=== PATIENT | female | born 1995 | race Caucasian/White ===

== ENCOUNTER → 2021-01-31 | Outpatient (CLI) | payer BC, MEDICAID, SELFPAY ==
[2021-01-31 17:50] LABS: Amphetamine Urine VISTA NEGATIVE (<1000 ng/mL); Barbiturate Urine VISTA NEGATIVE (< 200 ng/mL); Benzodiazepine Urine VISTA NEGATIVE (< 200 ng/mL); Cocaine Urine VISTA NEGATIVE (< 300 ng/mL); Ecstacy Urine VISTA NEGATIVE (< 500 ng/mL); Methadone Urine VISTA NEGATIVE (< 300 ng/mL); PCP Urine VISTA NEGATIVE (< 25 ng/mL); THC Urine VISTA NEGATIVE (< 50 ng/mL); Vista UDS pH Range 5
[2021-02-03 00:06] LABS: Chlamydia By Nucleic Acid AMP Negative (Negative)
[2021-02-03 12:57] LABS: Gonococcus By Nucleic Acid AMP Negative (Negative)
== END | disposition home or self-care (01) ==
LOC: LABSPEC 16:30
PROVIDERS: Visit Provider Obstetrics & Gynecology
DX: Z34.90 Encounter for supervision of normal pregnancy, unspecified, unspecified trimester (principal)
CPT/HCPCS: 80307; 87086; 87491; 87591

== ENCOUNTER → 2021-02-09 12:07 | Outpatient (CLI) | payer BC, MEDICAID, SELFPAY ==
[2021-02-09 12:58] LABS: Absolute Lymphocyte Count 2.06 X10^3/uL (0.83-4.51); Absolute Neutrophil Count 5.6 X10^3/uL (2.0-7.7); Basophil# 0.03 X10^3/uL; Basophil% 0.4 % (0-1); Eosinophil# 0.02 X10^3/uL; Eosinophils% 0.2 % (0-5); Hematocrit 36.4 % (37-47); Hemoglobin 12.3 g/dL (12.0-15.0); Lymphocyte # 2.06 X10^3/ul (0.83-4.51); Lymphocyte % 24.5 % (19-41); Mean Corp Hgb Conc 33.8 g/dL (32-36); Mean Corpuscular Hgb 28.8 pg (27.0-32.0); Mean Corpuscular Volume 85.2 fL (81-99); Mean Platelet Vol. 9.9 fl (6.2-12.0); Monocyte# 0.62 X10^3/uL; Monocyte% 7.4 % (0-10); NRBC Flagged by Analyzer 0 % (0-5); Neutrophil # 5.64 X10^3/uL (2.7-7.7); Neutrophil % 67.1 % (47-70); Platelet Count 255 K/mm3 (150-450); RBC Distribution Width CV 12.8 % (11.6-14.6); RBC Distribution Width SD 39.4 fl (35.1-43.9); Red Blood Count 4.27 M/mm3 (4.2-5.4); White Blood Count 8.4 K/mm3 (4.4-11.0)
[2021-02-09 13:13] LABS: NATERA MAILED SPECIMEN
[2021-02-09 13:56] LABS: HIV - WCH Non-Reactive (Nonreactive); Hepatitis B Surface Antigen Non-Reactive (Nonreactive); Hepatitis C Antibody Non-Reactive (Nonreactive); Rubella IgG Reactive (Nonreactive); Syphilis Antibodies Non-reactive
== END ==
PROVIDERS: PCP Family Medicine; Referring Provider Obstetrics & Gynecology; Visit Provider Obstetrics & Gynecology
DX: Z34.81 Encounter for supervision of other normal pregnancy, first trimester (principal); Z31.430 Encounter of female for testing for genetic disease carrier status for procreative management
CPT/HCPCS: 36415; 85025; 86703; 86762; 86780; 86803; 86850; 86900; 86901; 87340

== ENCOUNTER 2021-06-01 10:00 | Outpatient (CLI) | payer BC, MEDICAID, SELFPAY ==
[2021-06-01 10:26] LABS: Absolute Lymphocyte Count 2.32 X10^3/uL (0.83-4.51); Absolute Neutrophil Count 8.6 X10^3/uL (2.0-7.7); Basophil# 0.05 X10^3/uL; Basophil% 0.4 % (0-1); Eosinophil# 0.08 X10^3/uL; Eosinophils% 0.7 % (0-5); Hematocrit 35.1 % (37-47); Hemoglobin 11.5 g/dL (12.0-15.0); Lymphocyte # 2.32 X10^3/ul (0.83-4.51); Lymphocyte % 19.5 % (19-41); Mean Corp Hgb Conc 32.8 g/dL (32-36); Mean Corpuscular Hgb 28.8 pg (27.0-32.0); Mean Platelet Vol. 9.5 fl (6.2-12.0); Monocyte# 0.77 X10^3/uL; Monocyte% 6.5 % (0-10); NRBC Flagged by Analyzer 0 % (0-5); Neutrophil # 8.55 X10^3/uL (2.7-7.7); Platelet Count 279 K/mm3 (150-450); RBC Distribution Width CV 13.2 % (11.6-14.6); RBC Distribution Width SD 42.5 fl (35.1-43.9); Red Blood Count 3.99 M/mm3 (4.2-5.4); White Blood Count 11.9 K/mm3 (4.4-11.0)
[2021-06-01 10:36] LABS: Glucose Challenge Gest 1H 50g 73 mg/dL (70-140)
== END 2021-06-01 23:59 | disposition home or self-care (01) ==
LOC: PAVLAB 10:01
PROVIDERS: PCP Family Medicine; Referring Provider Obstetrics & Gynecology; Visit Provider Obstetrics & Gynecology
DX: Z34.90 Encounter for supervision of normal pregnancy, unspecified, unspecified trimester (principal)
CPT/HCPCS: 36415; 82950; 85025

== ENCOUNTER → 2021-07-27 | Outpatient (CLI) | payer BC, MEDICAID, SELFPAY ==
--- NOTE | 2021-07-27 08:26 | US_ITS ---
STUDY: ULTRASOUND BREAST - RIGHT REASON FOR EXAM: Female, 25 years old. Right axillary lump. TECHNIQUE: Axial and longitudinal images of the RIGHT breast were performed with a high resolution ultrasound transducer. # OF IMAGES: 11 COMPARISON: None. FINDINGS: RIGHT Breast: Imaging of the right axillary region was obtained. There is evidence of accessory breast tissue in the region of the right axilla. US/Breast Limited Unilateral IMPRESSION: Accessory breast tissue is seen in the right axillary region. ASSESSMENT CATEGORY: BIRADS Category 2: Benign. A letter regarding these results will be sent to the patient by the facility within 30 days. Electronically Signed: Dale Telles MD at 8:53 EDT ,
== END | disposition home or self-care (01) ==
LOC: OPUS 08:25
PROVIDERS: PCP Family Medicine; Referring Provider Obstetrics & Gynecology; Visit Provider Obstetrics & Gynecology
DX: N63.31 Unspecified lump in axillary tail of the right breast (principal)
CPT/HCPCS: 76642

== ENCOUNTER → 2021-08-08 | Outpatient (CLI) | payer BC, MEDICAID, SELFPAY | END | disposition home or self-care (01) | PROVIDERS: PCP Family Medicine; Visit Provider Obstetrics & Gynecology | DX: Z34.90 Encounter for supervision of normal pregnancy, unspecified, unspecified trimester (principal) | CPT/HCPCS: 87081 ==

== ENCOUNTER 2021-08-29 19:35 | Inpatient (IN) | payer BC, MEDICAID, SELFPAY ==
[2021-08-29] VITALS (8 sets, daily range): BP systolic 108–129; BP diastolic 62–82; PULSE 64–79; TEMP 36.6–37.3; O2SAT 95–98; BMI 25.5
[2021-08-29 14:33] LABS: ROM Internal Control Test YES-OK TO RESULT pt. (Internal QC); ROM Patient Test Negative (Negative)
--- NOTE | 2021-08-29 14:46 | US_ITS ---
STUDY: SECOND AND THIRD TRIMESTER OBSTETRICAL ULTRASOUND - LIMITED REASON FOR EXAM: Female, 25 years old TERRA LMP: 11/25/2020. PRIOR ULTRASOUND: None. TECHNIQUE: Transabdominal TECHNICAL QUALITY: Adequate. FINDINGS: There is a single intrauterine fetus. The fetus is in a cephalic presentation. There is demonstrated cardiac activity with a heart rate of 137 bpm. There is a normal amniotic fluid volume. The largest amniotic fluid pocket measures 4.1 cm x 4.7 cm. The amniotic fluid index (TERRA) is 11.25 cm. The placenta is posterior in location and is not low lying. There are Grade 2 placental changes. BIOMETRY: Age by LMP: 39 weeks, 4 days. AIDE by LMP: 09/01/2021. US/OB Limited (No Biometrics) IMPRESSION: Normal amniotic fluid. Electronically Signed: Dale Telles MD at 15:32 EDT ,
[2021-08-29] MEDS: Lactated Ringers 1,000 ML 50 ML IV (20:05)
[2021-08-29 20:20] LABS: Absolute Lymphocyte Count 2.49 X10^3/uL (0.83-4.51); Absolute Neutrophil Count 7.1 X10^3/uL (2.0-7.7); Basophil# 0.04 X10^3/uL; Basophil% 0.4 % (0-1); Eosinophil# 0.11 X10^3/uL; Hematocrit 38.4 % (37-47); Hemoglobin 12.7 g/dL (12.0-15.0); Lymphocyte # 2.49 X10^3/ul (0.83-4.51); Lymphocyte % 23.7 % (19-41); Mean Corp Hgb Conc 33.1 g/dL (32-36); Mean Corpuscular Volume 84.8 fL (81-99); Monocyte% 6.7 % (0-10); NRBC Flagged by Analyzer 0 % (0-5); Neutrophil # 7.13 X10^3/uL (2.7-7.7); Neutrophil % 67.9 % (47-70); Platelet Count 249 K/mm3 (150-450); RBC Distribution Width CV 13.9 % (11.6-14.6); RBC Distribution Width SD 43.2 fl (35.1-43.9); Red Blood Count 4.53 M/mm3 (4.2-5.4); White Blood Count 10.5 K/mm3 (4.4-11.0)
--- NOTE | 2021-08-29 22:00 | NURSING ---
this RN reviewed intermittent auscultation with pt and her support person. pt states she would prefer continuous FHR tracing since she would like to hear FHR. this RN left her hooked up to monitor. RN informed pt she can always request IA, if she would want it later in her labor.
[2021-08-30] VITALS (20 sets, daily range): BP systolic 100–123; BP diastolic 55–78; PULSE 65–88; RESP 15–16; TEMP 36.3–37.2; O2SAT 96–100
[2021-08-30] MEDS: Oxytocin 30 units/NS 500 ml 30 UNITS/500 ML IV.SOLN IV (01:38)
[2021-08-30] MEDS: Ondansetron 4 MG/2 ML Vial IV (04:03)
[2021-08-30] MEDS: 0.9% Saline Lock 10 ML Syringe IV ×2 (04:03→10:58)
--- NOTE | 2021-08-30 06:08 | HP.PCM.OB_ITS ---
HPI - General General Date of Admission: 08/29/21 HPI Narrative ELVIN MCINTOSH, is a 25 F who presents IAL with ROM based on pooling seen on speculum exam. she has regular ctx and is 4 cm dilated. Maternal Data Information AIDE Calculator Estimated Delivery Date Method Current WG Current Estimate 09/01/21 LMP (Certain) 39w 5d PFSH PFSH Medical History COVID-19 vaccine series completed H/O: depression Home Medications multivitamin no.47-iron fum 27 mg-folate no.1 1 mg-dha 300 mg capsule (PNV-DHA) 1 cap PO DAILY Check with primary doctor 01/23/21 [History Last Taken 08/29/21 06:00] breast pump #1 ea 06/01/21 [Rx Last Taken Unknown] Allergy/AdvReac Type Severity Reaction Status Date / Time No Known Allergies Allergy Verified 08/29/21 14:00 Family History Other Diabetes Social History current occupational status: student current occupation: [employer] Smoking Status: Never smoker second hand exposure: No alcohol intake: current details: not while substance use type: does not use caffeine: Yes seatbelt use: always do you feel safe at home: Yes additional social history: - Marc History 1 Elective abortions Hx Para 0 Spontaneous abortions Hx # Term Pregnancies Ectopic pregnancies Hx # Pregnancies Multiple births # of living children Visit Details Expected Delivery Route/Plan IOL by 41ish weeks Labor Preferences- CB/BF classes: encouraged labor support person: Marc labor intervention preferences: [] pain management options preferred: limited intervention but ok with epidural if needed. cut cord/dad catch: yes : yes PP control planned: discussed discussed possible routes of delivery and associated risks: [] special requests: [] Plans Covid status: fully vaccinated Flu vaccine: vaccinated Tdap vaccine: given Rhogam: na LARC form signed: yes movement and labor precautions reviewed. Problem list reviewed and updated with the most current plan of care details and appropriate orders placed. Relevant counseling for the gestational age provided. Continue routine care and follow up unless otherwise noted in visit notes/problem list details OB Flowsheet Initial Weight: Not Recorded Date -?-?-?-?-?-?-?-?-?-?-?-?- EGA Weight BP Urine Prot -?-?-?-?-?-?-?-?-?-?-?-?- Glucose FHR FuHt Pres Dilation -?-?-?-?-?-?-?-?-?-?-?-?- Effaced St Visit Note 01/31/21 -?-?-?-?-?-?-?-?-?-?-?-?- 9w 4d 139 lb 2 oz 116/78 -?-?-?-?-?-?-?-?-?-?-?-?- -?-?-?-?-?-?-?-?-?-?-?-?- JV- CRL consiste nt with LMP. AIDE 09/01/21 03/02/21 -?-?-?-?-?-?-?-?--?-?-?-?- 13w 6d 143 lb 6 oz Negative -?-?-?-?-?-?-?-?-?-?-?-?- Negative 145 -?-?-?-?-?-?-?-?-?-?-?-?- JV- no lof, vagi nal bleeding or cramping. JV- no lof, vaginal bleeding or cramping. however has some round ligament pain. Ni and horizon tests were normal. 03/30/21 -?-?-?-?-?-?-?-?-?-?-?-?- 17w 6d 145 lb 114/72 Negative -?-?-?-?-?-?-?-?-?-?-?-?- Negative 150 -?-?-?-?-?-?-?-?-?-?-?-?- JV- no lof, vagi nal bleeding, or cramping. some dizziness. recommend compression stockings. 05/04/21 -?-?-?-?-?-?-?-?-?-?-?-?- 22w 6d 150 lb 2 oz 100/80 Nega tive -?-?-?-?-?-?-?-?-?-?-?-?- Negative 148 -?-?-?-?-?-?-?-?-?-?-?-?- JV- no complaint s today. 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 pt reassured. gct next visit. pt's is building their home and not present for today visit. 06/01/21 -?-?-?-?-?-?-?-?-?-?-?-?- 26w 6d 157 lb 6 oz 122/80 Nega tive -?-?-?-?-?-?-?-?-?-?-?-?- Negative 140 27 -?-?-?-?-?-?-?-?-?-?-?-?- JV- no lof, vagi nal bleeding, or dec fm. normal glucola. 06/20/21 -?-?-?-?-?-?-?-?-?-?-?-?- 29w 4d 164 lb 112/60 Negative -?-?-?-?-?-?-?-?-?-?-?-?- Negative 136 29 -?-?-?-?-?-?-?-?-?-?-?-?- MH-No VB, LOF. G ood FM. Tdap. [facility]. 28 wk labs. 07/06/21 -?-?-?-?-?-?-?-?-?-?-?-?- 31w 6d 163 lb 4 oz 120/86 Nega tive -?-?-?-?-?-?-?-?-?-?-?-?- Negative 140 32 -?-?-?-?-?-?-?-?-?-?-?-?- JV- pt has a pea size lump under axilla but is getting bigger. non-tender but feels rubbery and fixed. ordering ultrasound. 07/20/21 -?-?-?-?-?-?-?-?-?-?-?-?- 33w 6d 163 lb 122/82 Negative -?-?-?-?-?-?-?-?-?-?-?-?- Negative 140 35 Cephalic -?-?-?-?-?-?-?-?-?-?-?-?- SM- no vb lof go od fm no regular ctx. 08/03/21 -?-?-?-?-?-?-?-?-?-?-?-?- 35w 6d 165 lb 110/70 Negative -?-?-?-?-?-?-?-?-?-?-?-?- Negative 155 35 0 -?-?-?-?-?-?-?-?-?-?-?-?- Jv- pt c/o motr and more pressure and dyscomfort. labor precautions discussed. gbs next visit 08/08/21 -?-?-?-?-?-?-?-?-?-?-?-?- 36w 4d 168 lb 116/82 Negative -?-?-?-?-?-?-?-?-?-?-?-?- Negative 145 37 Cephalic 0 -?--?-?-?-?-?-?-?-?-?-?-?- -2 JV- feta l station is low but cx posterior. gbs collected. 08/16/21 -?-?-?-?-?-?-?-?-?-?-?-?- 37w 5d 167 lb 8 oz 118/76 Nega tive -?-?-?-?-?-?-?-?-?-?-?-?- Negative 150 37 Cephalic 1 .5 -?-?-?-?-?-?-?-?-?-?-?-?- 60 -1 JV- no lof , vaginal bleeding, or dec fm. no complaints.labor precautions discussed. 08/24/21 -?-?-?-?-?-?-?-?-?-?-?-?- 38w 6d 168 lb 8 oz 118/80 Nega tive -?-?-?-?-?-?-?-?-?-?-?-?- Negative 150 38 Cephalic 1 .5 -?-?-?-?-?-?-?-?-?-?-?-?- SM- no vb lof go od fm no regular ctx 08/29/21 -?-?-?-?-?-?-?-?-?-?-?-?- 39w 4d 168 lb 119/78 129/82 120/69 108/66 121/62 100/55 116/70 123/78 120/78 -?-?-?-?-?-?-?-?-?-?-?-?- -?-?-?-?-?-?-?-?-?-?-?-?- NST FHR Rate Baby A Baseline: 140 Variability:: Moderate Accelerations:: 15 x 15 Decelerations:: None NST Reactive:: Yes FHR Category:: Category I Uterine Activity:: q3-5 ROS Constitutional Constitutional: Reports systems reviewed and no addt'l complaints, except as documented ENT HEENT: Reports systems reviewed and no addt'l complaints, except as documented Cardiovascular Cardiovascular: Reports systems reviewed and no addt'l complaints, except as documented Respiratory/Chest Respiratory/Chest: Reports systems reviewed and no addt'l complaints, except as documented Gastrointestinal Gastrointestinal: Reports systems reviewed and no addt'l complaints, except as documented and nausea; Denies abdominal pain Genitourinary Genitourinary: Reports systems reviewed and no addt'l complaints, except as documented, contractions Details: present and frequency (regular ) and movement Details: present Musculoskeletal Musculoskeletal: Reports systems reviewed and no addt'l complaints, except as documented Integumentary Integumentary: Reports as per HPI Neurologic Neurologic: Reports systems reviewed and no addt'l complaints, except as documented Endocrine Endocrinology: Reports systems reviewed and no addt'l complaints, except as documented Vital Signs Vital Signs Vital Signs: 08/29/21 13:47 08/29/21 13:47 08/29/21 13:47 Temperature Temperature Source Pulse Rate 64 Blood Pressure 119/78 BP Systolic 119 BP Diastolic 78 Pulse Ox 98 08/29/21 13:46 08/29/21 13:46 08/29/21 20:46 Temperature 98.6 F Temperature Source Temporal Pulse Rate Blood Pressure 129/82 H BP Systolic 129 BP Diastolic 82 Pulse Ox 08/29/21 20:46 08/29/21 20:46 08/29/21 20:44 Temperature Temperature Source Temporal Pulse Rate 67 Blood Pressure BP Systolic BP Diastolic Pulse Ox 97 08/29/21 20:44 08/29/21 20:44 08/29/21 21:41 Temperature 97.8 F Temperature Source Pulse Rate Blood Pressure 120/69 BP Systolic 120 BP Diastolic 69 Pulse Ox 95 08/29/21 21:41 08/29/21 21:41 08/29/21 21:40 Temperature Temperature Source Temporal Pulse Rate 77 Blood Pressure BP Systolic BP Diastolic Pulse Ox 96 08/29/21 21:40 08/29/21 21:40 08/29/21 22:35 Temperature 99.1 F Temperature Source Pulse Rate Blood Pressure 108/66 BP Systolic 108 BP Diastolic 66 Pulse Ox 95 08/29/21 22:35 08/29/21 22:35 08/29/21 22:35 Temperature Temperature Source Temporal Pulse Rate 67 Blood Pressure BP Systolic BP Diastolic Pulse Ox 98 08/29/21 22:35 08/29/21 23:08 08/29/21 23:08 Temperature 97.8 F Temperature Source Temporal Pulse Rate Blood Pressure 121/62 H BP Systolic 121 BP Diastolic 62 Pulse Ox 08/29/21 23:08 08/29/21 23:08 08/29/21 23:08 Temperature 97.8 F Temperature Source Pulse Rate 79 Blood Pressure BP Systolic BP Diastolic Pulse Ox 95 08/30/21 00:29 08/30/21 00:29 08/30/21 00:29 Temperature Temperature Source Pulse Rate 74 Blood Pressure 100/55 L BP Systolic 100 BP Diastolic 55 Pulse Ox 98 08/30/21 00:29 08/30/21 00:29 08/30/21 00:29 Temperature 97.5 F L Temperature Source Temporal Pulse Rate Blood Pressure BP Systolic BP Diastolic Pulse Ox 98 08/30/21 01:31 08/30/21 01:31 08/30/21 01:31 Temperature Temperature Source Temporal Pulse Rate 66 Blood Pressure 116/70 BP Systolic 116 BP Diastolic 70 Pulse Ox 08/30/21 01:31 08/30/21 01:31 08/30/21 02:53 Temperature 97.6 F L Temperature Source Temporal Pulse Rate Blood Pressure BP Systolic BP Diastolic Pulse Ox 98 08/30/21 02:53 08/30/21 02:53 08/30/21 02:53 Temperature Temperature Source Pulse Rate 75 Blood Pressure 123/78 H BP Systolic 123 BP Diastolic 78 Pulse Ox 100 08/30/21 02:53 08/30/21 03:53 08/30/21 03:53 Temperature 98.1 F Temperature Source Temporal Pulse Rate Blood Pressure 120/78 BP Systolic 120 BP Diastolic 78 Pulse Ox 08/30/21 03:53 08/30/21 03:53 08/30/21 03:53 Temperature 97.3 F L Temperature Source Pulse Rate 81 Blood Pressure BP Systolic BP Diastolic Pulse Ox 98 08/30/21 04:59 08/30/21 04:59 08/30/21 04:59 Temperature 97.6 F L Temperature Source Temporal Pulse Rate Blood Pressure BP Systolic BP Diastolic Pulse Ox 96 Weight Weight: 168 lb Body Mass Index (BMI) 25.5 Physical Exam Const alert, oriented x3 and healthy appearing Constitutional Narrative: uncomfortable with contractions HEENT normocephalic and moist oral mucous membranes Head and Scalp: atraumatic Neck full ROM, no lymphadenopathy, supple and thyroid normal General: trachea midline Thyroid: thyroid normal Lymph Lymphatic: no lymphadenopathy noted Chest inspection of chest normal Resp normal respiratory effort Cardio regular rate GI normal to inspection, nondistended, normoactive bowel sounds, soft to palpation and non-tender Inspection: gravid external exam normal Bimanual Exam - Vag & Uterus: uterus non-tender Manual OB Exam: estimated gestational size appropriate, presentation cephalic, dilated, effaced and station Extremity normal to inspection General Extremity: Negative for edema Skin no rashes or lesions noted Neuro deep tendon reflexes 2+ bilaterally Motor Exam: strength 5/5 throughout and clonus absent Psych mental status grossly normal Labs Labs Labs: Blood Type O POSITIVE Antibody Screen NEGATIVE Hct 38.4 % (37-47) Hgb 12.7 g/dL (12.0-15.0) Obstetrics US Syphilis Total Ab Non-reactive Rubella IgG Antibody Reactive (Nonreactive) Hep Bs Antigen Non-Reactive (Nonreactive) Chlamydia DNA (DU) Negative (Negative) Neisseria gonorrhoeae DNA (DU) Negative (Negative) HIV 1&2 Antibody Non-Reactive (Nonreactive) Glucose 1 Hr 50 gm 73 mg/dL (70-140) Assessment & Plan (1) Supervision of normal : QUALIFIERS: Normal : normal first Trimester: third trimester Qualified Code(s): Z34.03 - Encounter for supervision of normal first , third trimester COMMENT: PRR AIDE: 09/01/21, girl, Spouse: Marc, (2) H/O: depression: COMMENT: on medication in the past, not currently; stable (3) : QUALIFIERS: Weeks of gestation: 38 weeks Qualified Code(s): Z3A.38 - 38 weeks gestation of COMMENT: anatomy nl, genetic low risk, dec afp.neg . GBS neg (4) Active labor at term: PLAN: Plan Patient presents IAL, plan expectant management for , pitocin/AROM PRN if needed. Pain management: minimal intervention. GBS neg. Management of any complications: none I have reviewed the [facility] and made any clinically relevant updates.
--- NOTE | 2021-08-30 07:54 | OP.PCM_ITS ---
Assessment & Plan (1) Active labor at term: (2) Supervision of normal : QUALIFIERS: Normal : normal first Trimester: third trimester Qualified Code(s): Z34.03 - Encounter for supervision of normal first , third trimester COMMENT: PRR AIDE: 09/01/21, girl, Spouse: Marc, (3) H/O: depression: COMMENT: on medication in the past, not currently; stable (4) : QUALIFIERS: Weeks of gestation: 38 weeks Qualified Code(s): Z3A.38 - 38 weeks gestation of COMMENT: anatomy nl, genetic low risk, dec afp.neg . GBS neg (5) Vaginal delivery: COMMENT: SM IAL 39 girl [place] Maternal Data Information AIDE Calculator Estimated Delivery Date Method Current WG Current Estimate 09/01/21 LMP (Certain) 39w 6d Vaginal Delivery Operative Information Date of Procedure: 08/30/21 Pre-Operative Diagnosis: IAL Post-Operative Diagnosis: same Surgery / Procedure Performed: Spontaneous Vaginal Delivery Type of Anesthesia: Local with 1% Lidocaine Special Medications: none Estimated Blood Loss: 200 Fluids Replaced: crystalloid Findings Description of Procedure: Patient began pushing and delivered the head in the AC presentation. The head was delivered atraumatically. The anterior and posterior shoulders delivered without complication followed by the rest of the and the was placed on the maternal abdomen. Delayed cord clamping was employed for approximately 60 seconds. Cord was clamped and cut and gentle traction was applied to the cord and the placenta delivered spontaneously immediately following it was noted to be intact with three-vessel cord. The perineum and vagina were inspected and noted to have a left labial laceration which was injected with lidocaine and repaired in the usual fashion. EBL was 200. Patient and tolerated delivery well. Presentation: AC Amniotic Membrane Rupture Type: Artificial Amniotic Fluid Description: Clear Placental Delivery Description: Spontaneous Placenta Disposition: [facility] Cord Vessel Description: 3 Vessels Cord Entanglement: None Infant A Gender: Female Delayed Cord Clamping: Yes Post Vaginal Delivery Medications Given After Delivery: IV Pitocin Episiotomy Description: None Laceration: Vaginal Extension/lac and 1st degree Complication Complications: None Procedures Urinary/Genital [id number]: [id number] Vaginal Delivery [facility]
[2021-08-30] MEDS: Oxytocin 30 units/NS 500 ml 30 UNITS/500 ML IV.SOLN 334 UNITS IV (08:25)
--- NOTE | 2021-08-30 10:04 | NURSING ---
SROM on 08/29/21 @ 1300. Then AROM forebag at 2130.
[2021-08-30] MEDS: Acetaminophen 500 MG Tablet 1000 MG PO (19:55)
[2021-08-31] MEDS: Naproxen 500 MG Tablet PO (00:56)
[2021-08-31 01:05] VITALS: BP 114/64; PULSE 63; RESP 16; TEMP 36.3
--- NOTE | 2021-08-31 02:51 | DCINST_ITS ---
Discharge Instructions Diet Discharge Diet: No restrictions Activity Discharge Activity: Return to Normal Activity, May Drive, May Shower and May Take a Tub Bath (in 4 weeks) May resume sexual activity in: 6-8 weeks (after seen by OB provider) Weight Bearing Status: Full weight bearing Lifting Restrictions: none Dressing / Incision Call your doctor if you observe: Fever of 101 or Higher, Inability to urinate, Using more than 1 pad per hour (for more than 2 hours in a row or more), Shortness of breath, Dizziness, Chest pain and - (headache not controlled with tylenol, change in vision) Follow Up Care When: in 6 weeks for visit, call the office to make the appointment. If you had elevated blood pressures call the office to be seen within 1 week. Test Results: Test results from this visit will be discussed in further detail at your follow- up appointment, if applicable. Discharge Plan Admission Admit Date/Time: 08/29/21 19:35 Attending Provider: Kay Brooks Primary Care Provider: Michelle Hastings Discharge Orders/Prescriptions Prescriptions: No Action PNV-DHA 27 mg iron-1 mg -300 mg capsule 1 cap PO DAILY (DME) breast pump Device See Rx Instructions .ROUTE .MEDSUPPLY Qty: 1 0RF Rx Instructions: As directed Referrals / Follow Up: Michelle Hastings DO [Primary Care Provider] - Disposition Disposition (needs filled in before D/C Order can be placed): Home, Self Care
[2021-08-31 04:45] VITALS: BP 100/60; PULSE 70; RESP 16; TEMP 36.3
[2021-08-31 09:07] VITALS: BP 100/62; PULSE 64; RESP 16; TEMP 36
[2021-08-31] MEDS: Senna/Docusate Sodium 1 Tablet PO (09:22)
--- NOTE | 2021-08-31 12:36 | PCM.PN.OB ---
Subjective Subjective Patient doing well without complaints. Tolerating PO. Ambulating and voiding without difficulty. feeding well. Denies chest pain, shortness of breath, calf pain/swelling, fevers, chills, lightheadedness. Objective Data Objective Data Vital Signs: Vital Signs Temp Pulse Resp BP Pulse Ox O2 Del Method 96.8 F L 64 16 100/62 99 Room Air 08/31/21 09:07 08/31/21 09:07 08/31/21 09:07 08/31/21 09:07 08/30/21 07:00 08/30/21 16:58 Oxygen Delivery Method Room Air Weight: 168 lb Body Mass Index (BMI) 25.5 Intake & Output: Intake and Output for Last 24 Hours 08/29/21 08/30/21 08/31/21 23:59 23:59 23:59 Intake Total 2732.67 / 2732.67 Output Total 1300 / 1300 Balance 1432.67 / 1432.67 Lab / Micro Data Result Diagrams: 08/29/21 20:05 Micro: Microbiology 08/29/21 20:05 Nasal Secretion SARS-CoV-2 Antigen (Rapid) - Final ROS Constitutional Constitutional: Reports systems reviewed and no addt'l complaints, except as documented Cardiovascular Cardiovascular: Reports systems reviewed and no addt'l complaints, except as documented Respiratory/Chest Respiratory/Chest: Reports systems reviewed and no addt'l complaints, except as documented Gastrointestinal Gastrointestinal: Reports systems reviewed and no addt'l complaints, except as documented Physical Exam Const alert, oriented x3 and no apparent distress HEENT Head and Scalp: atraumatic Resp normal respiratory effort GI soft to palpation and non-tender Bimanual Exam - Vag & Uterus: uterus non-tender Uterus Palpation: uterus fundus firm (below Umbilicus) Assessment & Plan (1) Vaginal delivery: COMMENT: SM IAL 39 girl [place] PLAN: Plan s/p PPD # 1 1. routine post delivery care 2. breast feeding- support given 3. rh positive 4. rubella immune
[2021-08-31 12:39] VITALS: BP 111/63; PULSE 83; RESP 18; TEMP 36.8
== END 2021-08-31 14:31 | disposition home or self-care (01) | DRG 807 ==
LOC: WPOUT 19:35 → WP 19:35
PROVIDERS: Admitting Provider Obstetrics & Gynecology; PCP Family Medicine; Visit Provider Obstetrics & Gynecology
DX: O70.0 First degree perineal laceration during delivery (principal); Z37.0 Single live birth; Z3A.38 38 weeks gestation of pregnancy; Z86.59 Personal history of other mental and behavioral disorders
CPT/HCPCS: 59025; 59050; 76815; 84112; 85025; 86850; 86900; 86901; 87426; 99218; J7120; A4216; G0378; J2405

== ENCOUNTER → 2021-10-19 | Outpatient (CLI) | payer SELFPAY ==
[2021-10-28 14:08] LABS: HPV Reflexed? NOT INDICATED
== END | disposition home or self-care (01) ==
PROVIDERS: Visit Provider Obstetrics & Gynecology
DX: Z12.4 Encounter for screening for malignant neoplasm of cervix (principal)
CPT/HCPCS: 88175; G0145

== ENCOUNTER 2022-09-26 03:26 | Emergency (ER) | payer BC, SELFPAY ==
[2022-09-26 03:27] VITALS: BP 124/86; PULSE 73; RESP 15; TEMP 36.8; O2SAT 99; BMI 20.8
--- NOTE | 2022-09-26 03:52 | EDS_ITS ---
HPI HPI - GI History of Present Illness Chief Complaint: Abd Pain Informant: patient Abdominal Pain/Flank Pain Onset: Hours (1-2) Context: Gradual Onset Timing: Continuous Quality: Sharp Location: Epigastric (w/o radiation/migration) Current Severity: Mild Maximum Severity: Moderate Worsened by: - (laughing) Relieved by: Nothing (tried tums) Nausea/Vomiting/Emesis GI Symptom: Negative for Nausea or Vomiting Diarrhea/Melena/Hematochezia GI Symptom: Negative for Diarrhea, Melena or Hematochezia Associated Symptoms Associated Symptoms: Negative for Dysuria, Frequency, Hematuria or Urgency Narrative Narrative: Healthy 26-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 Has not gone away. No nausea or vomiting. No dyspnea, it does not get worse when she takes a deep breath but it hurts more to laugh. She is about 4 weeks by dates. She had a home positive test. . She denies any lower abdominal pain, vaginal discharge or bleeding. PFSH [facility] Medical History COVID-19 vaccine series completed H/O: depression Vaginal delivery Home Medications multivitamin no.47-iron fum 27 mg-folate no.1 1 mg-dha 300 mg capsule (PNV-DHA) 1 cap PO DAILY Check with primary doctor 01/23/21 [History Last Taken 08/29/21 06:00] breast pump #1 ea 06/01/21 [Rx Last Taken Unknown] buspirone 5 mg tablet 5 mg PO BID #60 tabs 01/16/22 [Rx Last Taken Unknown] Allergy/AdvReac Type Severity Reaction Status Date / Time No Known Allergies Allergy Verified 09/26/22 03:33 Family History Other Diabetes Social History current occupational status: student current occupation: [employer] Smoking Status: Never smoker second hand exposure: No alcohol intake: current details: not while substance use type: does not use caffeine: Yes seatbelt use: always do you feel safe at home: Yes additional social history: - Marc ROS ROS ED Constitutional Constitutional ED: Denies chills or fever(s) Eyes Eyes: Denies change in vision or diplopia ENT ENT ED: Denies rhinorrhea or sore throat Cardiovascular Cardiovascular: Denies chest pain or palpitations Respiratory/Chest Respiratory/Chest: Denies cough or dyspnea Gastrointestinal Gastrointestinal: Reports abdominal pain; Denies diarrhea, nausea or vomiting Genitourinary Genitourinary ED: Denies dysuria or hematuria Musculoskeletal Musculoskeletal: Denies back pain or neck pain Integumentary Denies abscess or rash Neurologic Neurologic: Denies headache(s), paresthesias or weakness Psychiatric Psychiatric: Denies anxiety or suicidal thoughts EXAM Physical Exam Const Vital Signs: 09/26/22 03:27 Temperature 98.2 F Temperature Source Oral Pulse Rate 73 Respiratory Rate 15 Blood Pressure 124/86 H Blood Pressure Mean 98 Pulse Ox 99 Oxygen Delivery Method Room Air Positive well nourished and well developed General Appearance ED: well developed and NAD HEENT Reports moist mucous membranes normocephalic and atraumatic Eyes PERRL and EOMs intact bilaterally Neck full ROM and supple Resp normal respiratory effort and clear to auscultation bilaterally Cardio regular rate, regular rhythm and no murmurs Rate: Negative for tachycardic GI non-tender and non-distended Auscultation: normoactive bowel sounds Palpation: soft Back/Spine no CVA tenderness General Back: other FROM Extremity normal to inspection General Extremety ED: Negative for edema, pulses abnormal or tenderness General Extremity: Negative for edema or pulses abnormal Neuro oriented x3, CN's II-XII intact bilaterally and no sensory deficits noted Sensorium / Orientation: awake and alert Motor Exam: strength 5/5 throughout Psych mental status grossly normal and thought process normal Skin no rashes or lesions noted and no wounds MDM MDM MDM Narrative Medical decision making narrative: Patient's vital signs are stable her exam is very benign. My suspicion is that this is upper GI discomfort. Indigestion in the differential as is an ulcer is likely to be biliary colic. Patient was amenable to a GI cocktail, dicyclomine, and doing a bedside ultrasound of her gallbladder to rule out stones. I did do a bedside ultrasound, I was not able to visualize the gallbladder but she had eaten about 3 hours ago, and I suspect it is contracted. No sonographic Lopes, less likely to be biliary colic here. Also did ultrasound of her uterus, it is nonspecific there is no obvious signs of however she states she is only 4 weeks along. She has no lower abdominal pain or tenderness or concern for ectopic at this point. She is comfortable being discharged, taking pepcid and following up. Discharge Plan Triage Chief Complaint: Abd Pain ED Provider: Rodolfo Mckeon Dx/Rx/DC Orders Clinical Impression: at early stage, Epigastric abdominal pain Instructions: ED Epigastric Pain Uncertain Cause Prescriptions: No Action PNV-DHA 27 mg iron-1 mg -300 mg capsule 1 cap PO DAILY (DME) breast pump Device See Rx Instructions .ROUTE .MEDSUPPLY Qty: 1 0RF Rx Instructions: As directed buspirone 5 mg tablet 5 mg PO BID Qty: 60 12RF Primary Care Provider: Michelle Hastings Referrals: Michelle Hastings, [Primary Care Provider] - 3-5 Days if not improving Activity Restrictions/Additional Instructions: take daily pepcid 40mg for next couple days Disposition Disposition: Home, Self Care
[2022-09-26] MEDS: Dicyclomine 10 MG Capsule 20 MG PO (04:11)
[2022-09-26] MEDS: Mag Hydrox/Al Hydrox/Simeth 30 ML UDC PO (04:12)
[2022-09-26] MEDS: Famotidine 20 MG Tablet 40 MG PO (04:33)
== END 2022-09-26 04:38 | disposition home or self-care (01) ==
LOC: ED 04:36
PROVIDERS: Emergency Provider Emergency Medicine; PCP Family Medicine; Visit Provider Emergency Medicine
DX: O26.891 Other specified pregnancy related conditions, first trimester (principal); R10.13 Epigastric pain; Z3A.01 Less than 8 weeks gestation of pregnancy
CPT/HCPCS: 99283

== ENCOUNTER → 2022-10-24 | Outpatient (CLI) | payer BC, SELFPAY ==
[2022-10-29 06:06] LABS: Chlamydia By Nucleic Acid AMP Negative (Negative); Gonococcus By Nucleic Acid AMP Negative (Negative)
== END | disposition home or self-care (01) ==
LOC: LABSPEC 13:16
PROVIDERS: PCP Family Medicine; Referring Provider Obstetrics & Gynecology; Visit Provider Obstetrics & Gynecology
DX: Z34.90 Encounter for supervision of normal pregnancy, unspecified, unspecified trimester (principal)
CPT/HCPCS: 87086; 87088; 87491; 87591

== ENCOUNTER → 2022-11-19 | Outpatient (CLI) | payer BC, SELFPAY ==
[2022-11-19 08:52] LABS: Absolute Lymphocyte Count 2.66 X10^3/uL (0.83-4.51); Absolute Neutrophil Count 6.3 X10^3/uL (2.0-7.7); Basophil# 0.03 X10^3/uL; Basophil% 0.3 % (0-1); Eosinophil# 0.04 X10^3/uL; Eosinophils% 0.4 % (0-5); Hemoglobin 12.1 g/dL (12.0-15.0); Lymphocyte # 2.66 X10^3/ul (0.83-4.51); Lymphocyte % 27.9 % (19-41); Mean Corp Hgb Conc 33.6 g/dL (32-36); Mean Corpuscular Hgb 28.5 pg (27.0-32.0); Mean Corpuscular Volume 84.9 fL (81-99); Mean Platelet Vol. 9.9 fl (6.2-12.0); Monocyte# 0.51 X10^3/uL; Monocyte% 5.3 % (0-10); NRBC Flagged by Analyzer 0 % (0-5); Neutrophil # 6.27 X10^3/uL (2.7-7.7); Neutrophil % 65.7 % (47-70); Platelet Count 255 K/mm3 (150-450); RBC Distribution Width CV 12.7 % (11.6-14.6); RBC Distribution Width SD 39.2 fl (35.1-43.9); Red Blood Count 4.24 M/mm3 (4.2-5.4); White Blood Count 9.6 K/mm3 (4.4-11.0)
[2022-11-19 09:33] LABS: NATERA MAILED SPECIMEN
[2022-11-19 10:05] LABS: HIV - WCH Non-Reactive (Nonreactive); Hepatitis B Surface Antigen Non-Reactive (Nonreactive); Hepatitis C Antibody Non-Reactive (Nonreactive); Rubella IgG Reactive (Nonreactive); Syphilis Antibodies Non-reactive
== END | disposition home or self-care (01) ==
PROVIDERS: PCP Family Medicine; Referring Provider Obstetrics & Gynecology; Visit Provider Obstetrics & Gynecology
DX: Z34.81 Encounter for supervision of other normal pregnancy, first trimester (principal)
CPT/HCPCS: 36415; 85025; 86703; 86762; 86780; 86803; 86850; 86900; 86901; 87340

== ENCOUNTER → 2023-01-14 | Outpatient (CLI) | payer BC, SELFPAY ==
--- NOTE | 2023-01-14 15:56 | US_ITS ---
STUDY: SECOND AND THIRD TRIMESTER OBSTETRICAL ULTRASOUND REASON FOR EXAM: Female, 27 years old anatomy US TECHNIQUE: Transabdominal and Transvaginal PRIOR ULTRASOUND: None. FINDINGS: There is a single intrauterine fetus. The fetus is in a cephalic presentation. There is demonstrated cardiac activity with a heart rate of 148 bpm. There is a normal amniotic fluid volume. The largest amniotic fluid pocket measures 4.8 cm cm. The placenta is anterior and low lying but not previa in location. There are Grade 0 placental changes. The cervix measures 4.5 cm in length. The adnexal regions are not visualized. BPD: 4.6 cm = 20 weeks, 0 day(s) HC: 17.6 cm = 20 weeks, 1 day(s) AC: 16.2 cm = 21 weeks, 2 day(s) FL: 3.2 cm = 20 weeks, 2 day(s) EGA by ultrasound: 20 weeks 4 day(s) AIDE by ultrasound: 05/30/2023 Estimated weight: 372 grams Weight percentile: 88% US/OB Anatomy w/ Transvaginal IMPRESSION: Living intrauterine with estimated gestational age of 20 weeks and 4 days. Placenta and is anterior and low lying but not previa in location. Electronically Signed: Cristobal Crooks MD at 20:38 EST ,
== END | disposition home or self-care (01) ==
LOC: OPUS 15:55
PROVIDERS: Referring Provider Advanced Practice Midwife; Visit Provider Advanced Practice Midwife
DX: Z34.90 Encounter for supervision of normal pregnancy, unspecified, unspecified trimester (principal); Z3A.15 15 weeks gestation of pregnancy
CPT/HCPCS: 76805; 76817

== ENCOUNTER → 2023-03-10 | Outpatient (CLI) | payer BC, SELFPAY ==
--- NOTE | 2023-03-10 13:24 | US_ITS ---
STUDY: SECOND AND THIRD TRIMESTER OBSTETRICAL ULTRASOUND - LIMITED REASON FOR EXAM: Female, 27 years old placental placement LMP: August 28, 2022. PRIOR ULTRASOUND: Comparison is made with prior study January 14, 2023. TECHNIQUE: Transabdominal TECHNICAL QUALITY: Adequate. FINDINGS: There is a single intrauterine fetus. The fetus is in a cephalic presentation. There is demonstrated cardiac activity with a heart rate of 146 bpm. There is a normal amniotic fluid volume. The largest amniotic fluid pocket measures 6.4 cm x 4.5 cm. The amniotic fluid index (TERRA) is 13 cm. The placenta is anterior in location and is not low lying. There are Grade 0 placental changes. The cervix measures 4.4 cm in length. BIOMETRY: Age by LMP: 27 weeks, 5 days. AIDE by LMP: June 04, 2023. age by prior US: 28 weeks, 3 days. AIDE by prior US: May 30, 2023. US/OB Limited (No Biometrics) IMPRESSION: The placenta is anterior in location and is not low-lying. Electronically Signed: Dale Telles MD at 9:16 EST ,
--- OUTSIDE RECORDS SUMMARY | 2023-03-10 14:00 | XMS RPT_ITS | CCD ---
Author Name Unknown Address [address] [place] [address] Organization [facility] Care Team Providers Care Solar Designer/Installer Name Role Phone CRIS FRAGA Referring Unavailable CRIS FRAGA Primary Care Unavailable CRIS FRAGA Admitting Unavailable Results Test Name Value Interpretation Reference Range Facil ity Encounters Encounter Date Encounter Type Care Provider Facility Start: 05-22-2021 End: 05-22-2021 ambulatory CRIS FRAGA [facility] Progress note 08-14-2020 Note Date & Type Note Facility 08-14-2020 Note HNO ID: [id number] Author: Ivan Fox MA Service: ? Author Type: Pool Cleaner Type: Progress Notes Filed: 08/14/2020 2:02 PM Note Text: ED Follow Up: Patient discharged from [facility] ED on 08/13/2020 1. How are you feeling since your ED visit? NA Have your symptoms improved or resolved? Not applicable 2. Were you prescribed any medications while in the ED or advised to stop any medication? Not applicable - If yes, were you able to fill your prescriptions? Not applicable -if stopped medication, what was the medication? NA 3. Were you advised to schedule a follow up appointment with your provider? Not applicable - If no, Do you feel like you need an appointment scheduled? Not applicable - If yes, Do you need this scheduled now or has this already been scheduled? Not applicable 4. Were you able to contact the office or proposition player provider prior to your ED visit? Not applicable 5. Is there anything else I can do for you today? Not applicable Called left message for patient to contact the office if she needs anything or would like to make a follow up apt. Ivan Fox MA [facility] Clinical Note 08-14-2020 Note Date & Type Note Facility 08-14-2020 Note Patient Outreach (AG JACINTOPLE) ELVIN CASTILLO ([id number]) 1995 F Date Time Provider Department 08/14/20 IVAN FOX During your visit today, we recorded the following information about you: Ivan Fox MA 08/14/2020 2:02 PM Signed ED Follow Up: Patient discharged from [facility] ED on 08/13/2020 1. How are you feeling since your ED visit? NA Have your symptoms improved or resolved? Not applicable 2. Were you prescribed any medications while in the ED or advised to stop any medication? Not applicable - If yes, were you able to fill your prescriptions? Not applicable -if stopped medication, what was the medication? NA 3. Were you advised to schedule a follow up appointment with your provider? Not applicable - If no, Do you feel like you need an appointment scheduled? Not applicable - If yes, Do you need this scheduled now or has this already been scheduled? Not applicable 4. Were you able to contact the office or proposition player provider prior to your ED visit? Not applicable 5. Is there anything else I can do for you today? Not applicable Called left message for patient to contact the office if she needs anything or would like to make a follow up apt. Ivan Fox MA Allergies As of Date: 08/14/2020 (No Known Allergies) Date Reviewed: 08/13/2020 Reviewed by: Graciela Gordon RN - Fully Assessed Reason for Visit: ED Outreach [Other] Cmt: ed outreach Prescriptions as of 08/14/2020 Sig: IBUPROFEN 400 MG TABLET Take 1 tablet by mouth every * ACETAMINOPHEN 500 MG TABLET Take 2 tablets by mouth every* GEETA 14 MCG/24 HRS (3 YRS) 1* 1 Each by INTRAUTERINE route * NORGESTIMATE 0.25 MG-ETHINYL * Take 1 tablet by mouth once d* Patient not taking: Reported on 08/03/2019 Problem List As Of Date 08/14/2020 Noted Resolved History of irregular menstrual bleeding [Z87.42]02/28/2016 Encounter Status:Closed by IVAN FOX on 08/14/20 [facility] Progress note 05-15-2020 Note Date & Type Note Facility 05-15-2020 Note HNO ID: [id number] Author: Tha Paiz Service: ? Author Type: Pool Cleaner Type: Progress Notes Filed: 05/15/2020 2:09 PM Note Text: ED Follow Up: Patient discharged from [facility] ED on 05/14/20. 1. How are you feeling since your ED visit? Feeling better Have your symptoms improved or resolved? Yes 2. Were you prescribed any medications while in the ED or advised to stop any medication? Yes - If yes, were you able to fill your prescriptions? No and did not flower buncher or picker because she already had some at home. -if stopped medication, what was the medication? n/a 3. Were you advised to schedule a follow up appointment with your provider? Yes - If no, Do you feel like you need an appointment scheduled? No - If yes, Do you need this scheduled now or has this already been scheduled? No 4. Were you able to contact the office or proposition player provider prior to your ED visit? Not applicable 5. Is there anything else I can do for you today? No Tha Paiz CMA [facility] Clinical Note 05-15-2020 Note Date & Type Note Facility 05-15-2020 Note Patient Outreach (AG FAMPLE) ELVIN CASTILLO ([id number]) 1995 F Date Time Provider Department 05/15/20 [place] During your visit today, we recorded the following information about you: Tha Paiz CMA 05/15/2020 2:09 PM Signed ED Follow Up: Patient discharged from [facility] ED on 05/14/20. 1. How are you feeling since your ED visit? Feeling better Have your symptoms improved or resolved? Yes 2. Were you prescribed any medications while in the ED or advised to stop any medication? Yes - If yes, were you able to fill your prescriptions? No and did not flower buncher or picker because she already had some at home. -if stopped medication, what was the medication? n/a 3. Were you advised to schedule a follow up appointment with your provider? Yes - If no, Do you feel like you need an appointment scheduled? No - If yes, Do you need this scheduled now or has this already been scheduled? No 4. Were you able to contact the office or proposition player provider prior to your ED visit? Not applicable 5. Is there anything else I can do for you today? No Tha Paiz CMA Allergies As of Date: 05/15/2020 (No Known Allergies) Date Reviewed: 05/14/2020 Reviewed by: Traci WeirRn) BENJAMIN Munroe - Fully Assessed Reason for Visit: ER F/U [41] Prescriptions as of 05/15/2020 Sig: IBUPROFEN 400 MG TABLET Take 1 tablet by mouth every * GEETA 14 MCG/24 HRS (3 YRS) 1* 1 Each by INTRAUTERINE route * NORGESTIMATE 0.25 MG-ETHINYL * Take 1 tablet by mouth once d* Patient not taking: Reported on 08/03/2019 Problem List As Of Date 05/15/2020 Noted Resolved History of irregular menstrual bleeding [Z87.42]02/28/2016 Encounter Status:Closed by THA PAIZ on 05/15/20 [facility] Summary Purpose Family History No Family History Records FoundNo Family History Records FoundNo Family History Records FoundNo Family History Records FoundNo Family History Records FoundNo Family History Records FoundNo Family History Records Found Advance Directives No Advanced Directives Records FoundNo Advanced Directives Records FoundNo Advanced Directives Records FoundNo Advanced Directives Records FoundNo Advanced Directives Records FoundNo Advanced Directives Records FoundNo Advanced Directives Records Found Additional Source Comments INFORMATION SOURCE (unrecogn ized section and content) DATE CREATED AUTHOR AUTHOR'S ORGANIZ ATION 03/16/2020 [facility] DATE CREATED AUTHOR AUTHOR'S ORGANIZ ATION 05/15/2020 [facility] DATE CREATED AUTHOR AUTHOR'S ORGANIZ ATION 08/13/2020 [facility] DATE CREATED AUTHOR AUTHOR'S ORGANIZ ATION 03/22/2021 [facility] DATE CREATED AUTHOR AUTHOR'S ORGANIZ ATION 04/08/2021 [facility] DATE CREATED AUTHOR AUTHOR'S ORGANIZ ATION 05/24/2021 [facility] FOR RECORDS PERTAINING TO PATIENTS WHO ARE OR HAVE BEEN ENROLLED IN A CHEMICAL DEPENDENCY/SUBSTANCEABUSE PROGRAM, SOME INFORMATION MAY BE OMITTED. This clinical summary was aggregated from multiple sources. Caution should be exercised in using it in the provision of clinical care. This summary normalizes information from multiple sources, and as a consequence, information in this document may materially change the coding, format and clinical context of patient data. In addition, data may be omitted in some cases. CLINICAL DECISIONS SHOULD BE BASED ON THE PRIMARY CLINICAL RECORDS. [facility]. provides no warranty or guarantee of the accuracy or completeness of information in this document.
== END | disposition home or self-care (01) ==
LOC: OPUS 13:20
PROVIDERS: Referring Provider Advanced Practice Midwife; Visit Provider Advanced Practice Midwife
DX: O44.40 Low lying placenta NOS or without hemorrhage, unspecified trimester (principal); Z3A.19 19 weeks gestation of pregnancy
CPT/HCPCS: 76815

== ENCOUNTER → 2023-03-25 | Outpatient (CLI) | payer BC, SELFPAY ==
--- OUTSIDE RECORDS SUMMARY | 2023-03-25 15:40 | XMS RPT_ITS | CCD ---
Author Name Unknown Address [address] [place] [address] Organization [facility] Care Team Providers Care Commissioning Manager Name Role Phone CRIS FRAGA Referring Unavailable CRIS FRAGA Primary Care Unavailable CRIS FRAGA Admitting Unavailable Results Test Name Value Interpretation Reference Range Facil ity Encounters Encounter Date Encounter Type Care Provider Facility Start: 05-22-2021 End: 05-22-2021 ambulatory CRIS FRAGA [facility] Progress note 08-14-2020 Note Date & Type Note Facility 08-14-2020 Note HNO ID: [id number] Author: Ivan Fox MA Service: ? Author Type: Production Machine Operator Type: Progress Notes Filed: 08/14/2020 2:02 PM Note Text: ED Follow Up: Patient discharged from [facility] ED on 08/13/2020 1. How are you [...] you able to contact the office or client relationship consultant provider prior to your ED visit? Not applicable 5. Is there anything else I can do for you today? Not applicable Called left message for patient to contact the office if she needs anything or would like to make a follow up apt. Ivan Fox MA [facility] Clinical Note 08-14-2020 Note Date & Type Note Facility 08-14-2020 Note Patient Outreach (AG JACINTOPLE) ELVIN CASTILLO ([id number]) 1995 F Date Time Provider Department 08/14/20 IVAN FOX During your visit today, we recorded the following information about you: Ivan Fox MA 08/14/2020 2:02 PM Signed ED Follow Up: Patient discharged from [facility] ED on 08/13/2020 1. How are you [...] you able to contact the office or client relationship consultant provider prior to your ED visit? Not [...] Encounter Status:Closed by IVAN FOX on 08/14/20 [facility] Progress note 05-15-2020 Note Date & Type Note Facility 05-15-2020 Note HNO ID: [id number] Author: Tha Paiz Service: ? Author Type: Production Machine Operator Type: Progress Notes Filed: 05/15/2020 2:09 PM Note Text: ED Follow Up: Patient discharged from [facility] ED on 05/14/20. 1. How are you feeling since your ED visit? Feeling better Have your symptoms improved or resolved? Yes 2. Were you prescribed any medications while in the ED or advised to stop any medication? Yes - If yes, were you able to fill your prescriptions? No and did not forklift picker because she already had some at [...] you able to contact the office or client relationship consultant provider prior to your ED visit? Not applicable 5. Is there anything else I can do for you today? No Tha Paiz CMA [facility] Clinical Note 05-15-2020 Note Date & Type Note Facility 05-15-2020 Note Patient Outreach (AG FAMPLE) ELVIN CASTILLO ([id number]) 1995 F Date Time Provider Department 05/15/20 [place] During your visit today, we recorded the following information about you: Tha Paiz CMA 05/15/2020 2:09 PM Signed ED Follow Up: Patient discharged from [facility] ED on 05/14/20. 1. How are you feeling since your ED visit? Feeling better Have your symptoms improved or resolved? Yes 2. Were you prescribed any medications while in the ED or advised to stop any medication? Yes - If yes, were you able to fill your prescriptions? No and did not forklift picker because she already had some at [...] you able to contact the office or client relationship consultant provider prior to your ED visit? Not [...] Encounter Status:Closed by THA PAIZ on 05/15/20 [facility] Summary Purpose Family History No Family History [...] DATE CREATED AUTHOR AUTHOR'S ORGANIZ ATION 03/16/2020 [facility] DATE CREATED AUTHOR AUTHOR'S ORGANIZ ATION 05/15/2020 [facility] DATE CREATED AUTHOR AUTHOR'S ORGANIZ ATION 08/13/2020 [facility] DATE CREATED AUTHOR AUTHOR'S ORGANIZ ATION 03/22/2021 [facility] DATE CREATED AUTHOR AUTHOR'S ORGANIZ ATION 04/08/2021 [facility] DATE CREATED AUTHOR AUTHOR'S ORGANIZ ATION 05/24/2021 [facility] FOR RECORDS PERTAINING TO PATIENTS WHO [...] BE BASED ON THE PRIMARY CLINICAL RECORDS. [facility]. provides no warranty or guarantee of the accuracy or completeness of information in this document.
[2023-03-25 15:46] LABS: Absolute Lymphocyte Count 2.13 X10^3/uL (0.83-4.51); Absolute Neutrophil Count 5.8 X10^3/uL (2.0-7.7); Basophil# 0.03 X10^3/uL; Basophil% 0.3 % (0-1); Eosinophil# 0.07 X10^3/uL; Eosinophils% 0.8 % (0-5); Hematocrit 35.6 % (37-47); Hemoglobin 11.5 g/dL (12.0-15.0); Lymphocyte # 2.13 X10^3/ul (0.83-4.51); Lymphocyte % 23.9 % (19-41); Mean Corp Hgb Conc 32.3 g/dL (32-36); Mean Corpuscular Hgb 28.3 pg (27.0-32.0); Mean Corpuscular Volume 87.5 fL (81-99); Mean Platelet Vol. 9.4 fl (6.2-12.0); Monocyte# 0.85 X10^3/uL; Monocyte% 9.5 % (0-10); NRBC Flagged by Analyzer 0 % (0-5); Neutrophil % 65.2 % (47-70); Platelet Count 233 K/mm3 (150-450); RBC Distribution Width CV 13.3 % (11.6-14.6); RBC Distribution Width SD 42.3 fl (35.1-43.9); Red Blood Count 4.07 M/mm3 (4.2-5.4); White Blood Count 8.9 K/mm3 (4.4-11.0)
[2023-03-25 15:57] LABS: Glucose Challenge Gest 1H 50g 103 mg/dL (70-140)
[2023-03-25 16:40] LABS: HIV - WCH Non-Reactive (Nonreactive); Syphilis Antibodies Non-reactive
== END | disposition home or self-care (01) ==
LOC: PAVLAB 15:19
PROVIDERS: Referring Provider Obstetrics & Gynecology; Visit Provider Obstetrics & Gynecology
DX: Z34.90 Encounter for supervision of normal pregnancy, unspecified, unspecified trimester (principal)
CPT/HCPCS: 36415; 82950; 85025; 86703; 86780

== ENCOUNTER → 2023-05-08 | Outpatient (CLI) | payer BC, SELFPAY | END | disposition home or self-care (01) | LOC: LABSPEC 17:18 | PROVIDERS: Referring Provider Advanced Practice Midwife; Visit Provider Advanced Practice Midwife | DX: Z34.90 Encounter for supervision of normal pregnancy, unspecified, unspecified trimester (principal) | CPT/HCPCS: 87081 ==

== ENCOUNTER 2023-05-28 16:12 | Inpatient (IN) | payer BC, SELFPAY ==
[2023-05-28] VITALS (33 sets, daily range): BP systolic 99–122; BP diastolic 60–87; PULSE 70–181; RESP 16; TEMP 36.4–37; O2SAT 87–100; BMI 26.5
--- NOTE | 2023-05-28 | LES_PTH ---
PATIENT: ELVIN MCINTOSH LOC: WP U#:[id number] AGE/SX: 27/F ROOM: WP021 RE05/28/[address]: Dr. Chelsi Gant DO : 1995 BED: 1 DIS: 05/30/2023 SPEC #: [id number] RECD: 05/28/23 22:28 STATUS: MARII OCHOA #: [id number] JULIANO: 05/28/23 00:[address]: Chelsi Gant DEPT: SURGICAL PATHOLOGY RECD BY: Alfonso Singh ENTERED: 05/29/23 09:51 SP TYPE: Lesion OTHR DR: No Primary Care Phys Tissues: Skin of lower extremity and hip Procedures: Surgery Specimen Level IV HEADER OPERATION: Not noted PRE-OP DIAGNOSIS: Groin skin lesion TISSUE SUBMITTED: Groin skin lesion MICROSCOPIC DIAGNOSIS Groin skin lesion, biopsy: Compound nevus. SJ/mr 05/30/23 MICROSCOPIC DESCRIPTION Slides are reviewed. GROSS DESCRIPTION Received is one container labeled with the patient's name and not further designated. The specimen consists of piece a temple-brown skin measuring 0.2 x 0.2 x 0.1cm. The entire specimen is submitted in one cassette. MARY ANN/ 05/29/23 TC:1 CPT: 37308
[2023-05-28] MEDS: Lactated Ringers 1,000 ML 999 ML IV (16:45)
[2023-05-28 16:48] LABS: Absolute Lymphocyte Count 1.83 X10^3/uL (0.83-4.51); Absolute Neutrophil Count 8.2 X10^3/uL (2.0-7.7); Basophil# 0.03 X10^3/uL; Basophil% 0.3 % (0-1); Eosinophil# 0.02 X10^3/uL; Eosinophils% 0.2 % (0-5); Hematocrit 38.9 % (37-47); Hemoglobin 12.7 g/dL (12.0-15.0); Lymphocyte # 1.83 X10^3/ul (0.83-4.51); Lymphocyte % 17.2 % (19-41); Mean Corp Hgb Conc 32.6 g/dL (32-36); Mean Corpuscular Hgb 27.8 pg (27.0-32.0); Mean Corpuscular Volume 85.1 fL (81-99); Mean Platelet Vol. 9.7 fl (6.2-12.0); Monocyte# 0.54 X10^3/uL; Monocyte% 5.1 % (0-10); NRBC Flagged by Analyzer 0 % (0-5); Neutrophil # 8.18 X10^3/uL (2.7-7.7); Neutrophil % 76.8 % (47-70); Platelet Count 259 K/mm3 (150-450); RBC Distribution Width CV 13.5 % (11.6-14.6); RBC Distribution Width SD 41.9 fl (35.1-43.9); Red Blood Count 4.57 M/mm3 (4.2-5.4); White Blood Count 10.6 K/mm3 (4.4-11.0)
[2023-05-28 17:24] LABS: Syphilis Antibodies Non-reactive
[2023-05-28] MEDS: Oxytocin 15 Units/NS 250ml 15 UNITS/250 ML IV.SOLN 2 UNITS IV (18:54)
--- NOTE | 2023-05-28 19:42 | HP.PCM.OB_ITS ---
HPI - General General Date of Admission: 05/28/23 HPI Narrative ELVIN MCINTOSH, is a 27 y/o @ 39 weeks 0 days who presents [facility] with rupture of membranes and contractions q 8 minutes. She is talking through contractions and states that they started around 5 am. Her water broke at 1 pm today. She denies bleeding or decreased movement. Her cervix was last found to be 3-4 cm in office and nurses report that she is 5 cm currently. Maternal Data Information AIDE Calculator Estimated Delivery Date Method Current WG Current Estimate 06/04/23 LMP (Certain) 39w 0d PFSH PFSH Medical History Anxiety COVID-19 vaccine series completed H/O: depression Vaginal delivery Home Medications multivitamin no.47-iron fum 27 mg-folate no.1 1 mg-dha 300 mg capsule (PNV-DHA) 1 cap PO DAILY Check with primary doctor 01/23/21 [History Last Taken 05/26/23 08:00 1 cap] magnesium 250 mg tablet 250 mg PO DAILY 05/28/23 [History Last Taken 05/25/23 08:00 250 mg] Allergy/AdvReac Type Severity Reaction Status Date / Time No Known Allergies Allergy Verified 05/28/23 15:38 Family History Other Diabetes Social History number of children: 1 current occupational status: student 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 Date Name GA/Weeks Outcome Route Bth Weight Gen Labor Lgth Anesthesia Del Locatn Provider FOB 08/30/21 [place] 39 live - full term Female loc [facility] Kay Todd Levy Delivery Date: 08/30/21 Last Updated by: Meghann Chopra see problem list for complications, and ial sm 39 girl [place] Visit Details Expected Delivery Route/Plan Labor Preferences- CB/BF classes: [] labor support person:Marc labor intervention preferences: [] pain management options preferred: [] cut cord/dad catch: [] : [] PP control planned: discussed possible routes of delivery and associated risks: [] special requests: [] Plans Covid status: [] Flu vaccine: given Tdap vaccine: given Rhogam: na LARC form signed: completed\ movement and labor precautions reviewed. Problem list reviewed and updated with the most current plan of care details and appropriate orders placed. Relevant counseling for the gestational age provided. Continue routine care and follow up unless otherwise noted in visit notes/problem list details OB Flowsheet Initial Weight: 135 lb Date -?-?-?-?-?-?-?-?-?-?-?-?- EGA Weight BP Urine Prot -?-?-?-?-?-?-?-?-?-?-?-?- Glucose FHR FuHt Pres Dilation -?-?-?-?-?-?-?-?-?-?-?-?- Effaced St Visit Note 10/24/22 -?-?-?-?-?-?-?-?-?-?-?-?- 8w 1d 135 lb 2 oz (+2 oz) 114/70 -?-?-?-?-?-?-?-?-?-?-?-?- 175 -?-?-?-?-?-?-?-?-?-?-?-?- SM- no further b leeding hematoma stable resolving 11/19/22 -?-?-?-?-?-?-?-?-?-?-?-?- 11w 6d 137 lb (+2 lb) 118/73 Negative -?-?-?-?-?-?-?-?-?-?-?-?- Negative 170 -?-?-?-?-?-?-?-?-?-?-?-?- KW-no vb, chan ng. no concerns. 11/22/22 -?-?-?-?-?-?-?-?--?-?-?-?- 12w 2d 134 lb 6 oz (-10 oz) 106/64 Negative -?-?-?-?-?-?-?-?-?-?-?-?- Negative 157 -?-?-?-?-?-?-?-?-?-?-?-?- LC- LC-vaginal bleeding today. + FHR. LC-small amount of vaginal b leeding today. +FHR. wants afp. 12/16/22 -?-?-?-?-?-?-?-?-?-?-?-?- 15w 5d 137 lb 6 oz (+2 lb 6 oz) 123/85 Negative -?-?-?-?-?-?-?-?-?-?-?-?- Negative 149 -?-?-?-?-?-?-?-?-?-?-?-?- JV- pt is starti ng to feel some round ligament pain. No other complaints. anatomy ultrasound ordered. 01/13/23 -?-?-?-?-?-?-?-?-?-?-?-?- 19w 5d 142 lb 8 oz (+7 lb 8 oz) 118/68 Negative -?-?-?-?-?-?-?-?-?-?-?-?- Negative 146 -?-?-?-?-?-?-?-?-?-?-?-?- MH-No VB or cram ping. Feeling movement. US tomorrow. Denies concerns 02/10/23 -?-?-?-?-?-?-?-?-?-?-?-?- 23w 5d 153 lb (+18 lb) 115/67 Negative -?-?-?-?-?-?-?-?-?-?-?-?- Negative 136 -?-?-?-?-?-?-?-?-?-?-?-?- JV- biggest comp laint today is calf cramps. encouraged stretching, hydration, and magnesium/potassium in diet. anatomy scan showed low lying placenta. rpt at 28 weeks. 03/10/23 -?-?-?-?-?-?-?-?-?-?-?-?- 27w 5d 157 lb 4 oz (+22 lb 4 oz) 107/70 Negative -?-?-?-?-?-?-?-?-?-?-?-?- Negative 140 -?-?-?-?-?-?-?-?-?-?-?-?- LC- no vb/ctx/lo f. good fm. had rescan, today low lying placenta resolved. 03/27/23 -?-?-?-?-?-?-?-?-?-?-?-?- 30w 1d 162 lb 4 oz (+27 lb 4 oz) 106/70 Negative -?-?-?-?-?-?-?-?-?-?-?-?- Negative 150 30 -?-?-?-?-?-?-?-?-?-?-?-?- KW- no vb/lof/ct x. good fm. having increased pelvic pain plans to see chiro to see is it helps 03/31/23 -?-?-?-?-?-?-?-?-?-?-?-?- 30w 5d 165 lb (+30 lb) 131/72 Negative -?--?-?-?-?-?-?-?-?-?-?-?- Negative 138 -?-?-?-?-?-?-?-?-?-?-?-?- JV- pt was added in for c/o brown mucous loss earlier today after her cook night last night. Cx is closed and posterior. no blood on exam. suspect mucous plug loss due to being on feet the entire shift. recommend rest tonight. 04/10/23 -?-?-?-?-?-?-?-?-?-?-?-?- 32w 1d 169 lb 2 oz (+34 lb 2 oz) 113/76 -?-?-?-?-?-?-?-?-?-?-?-?- 135 33 -?-?-?-?-?-?-?-?-?-?-?-?- KW-no vb/lof/ctx . good fm. tdap today. no concerns 04/22/23 -?-?-?-?-?-?-?-?-?-?-?-?- 33w 6d 170 lb (+35 lb) 109/72 Negative -?-?-?-?-?-?-?-?-?-?-?-?- Negative 140 34 -?-?-?-?-?-?-?-?-?-?-?-?- Sm- no vb lof go od fm no regular ctx 05/08/23 -?-?-?-?-?-?-?-?-?-?-?-?- 36w 1d 171 lb (+36 lb) 114/75 -?-?-?-?-?-?-?-?-?-?-?-?- 130 36 0 -?-?-?-?-?-?-?-?-?-?-?-?- KW- no vb/lof/ct x. good fm. 05/15/23 -?-?-?-?-?-?-?-?-?-?-?-?- 37w 1d 178 lb 2 oz (+43 lb 2 oz) 105/65 Negative -?-?-?-?-?-?-?-?-?-?-?-?- Negative 135 39 2 -?-?-?-?-?-?-?-?-?-?-?-?- 70 -1 kw- no vb/ lof/ctx. good fm. no concerns today 05/22/23 -?-?-?-?-?-?-?-?-?-?-?-?- 38w 1d 173 lb 4 oz (+38 lb 4 oz) 131/74 Negative -?-?-?-?-?-?-?-?-?-?-?-?- Negative 130 39 3 -?-?-?-?-?-?-?-?-?-?-?-?- 70 -1 SM- no vb lof good fm n oregular ctx ROS Constitutional Constitutional: Denies change in weight, fatigue, fever(s), headache(s), poor appetite or weakness Eyes Eyes: Denies blurry vision, change in vision, seeing flashes or spots in vision ENT HEENT: Denies dizziness, headache(s), loss taste/smell or sore throat Cardiovascular Cardiovascular: Denies chest pain, dizziness, dyspnea, irregular heart rhythm, leg edema, palpitations, rapid heart rate or vomiting Respiratory/Chest Respiratory/Chest: Denies chest tightness, cough, dyspnea or breast pain Gastrointestinal Gastrointestinal: Denies abdominal pain, anorexia, constipation, cramping, diarrhea, hemorrhoids, vomiting or weight changes Genitourinary Genitourinary: Denies dysuria, flank pain, genital lesions, genital pain, urinary frequency or urinary urgency Musculoskeletal Musculoskeletal: Denies back pain, difficulty walking, joint pain, limited range of motion, muscle cramps or numbness Integumentary Integumentary: Denies lesions or unusual bruising Neurologic Neurologic: Denies abnormal movements, abnormal speech, dizziness, numbness, seizure-like activity or syncope Psychiatric Psychiatric: Denies anxiety, behavioral changes, change in appetite, change in libido, cognitive impairment, confusion, depression, difficulty concentrating, hallucinations or suicidal thoughts Endocrine Endocrinology: Denies excessive sweating, polydipsia or polyuria Hematologic/Lymphatic Hematologic/Lymphatic: Denies easy bleeding, easy bruising or lymphadenopathy Allergic/Immunologic Allergic/Immunologic: Denies itchy eyes, lip swelling, seasonal rhinorrhea, rhinitis, throat swelling, tongue swelling, eczemia, wheezing or asthma Vital Signs Vital Signs Vital Signs: 05/28/23 16:32 05/28/23 16:32 05/28/23 16:31 Temperature Temperature Source Temporal Pulse Rate 87 Respiratory Rate Blood Pressure 118/69 BP Systolic 118 BP Diastolic 69 05/28/23 16:31 05/28/23 16:31 05/28/23 19:18 Temperature 98.6 F Temperature Source Pulse Rate Respiratory Rate 16 Blood Pressure 120/87 H BP Systolic 120 BP Diastolic 87 05/28/23 19:18 Temperature Temperature Source Pulse Rate 106 H Respiratory Rate Blood Pressure BP Systolic BP Diastolic Weight Weight: 174 lb 8 oz Body Mass Index (BMI) 26.5 Physical Exam Const alert, oriented x3, no apparent distress and healthy appearing General Appearance: cooperative; Negative for anxious HEENT normocephalic Face and Sinus: normal facial exam Eyes EOMs intact bilaterally and no scleral icterus General Eye: normal appearance of both eyes Neck full ROM and supple Lymph Lymphatic: no lymphadenopathy noted Chest Chest: abnormal inspection of the chest Resp normal respiratory effort Effort and Inspection: able to speak in complete sentences Cardio regular rate GI soft to palpation and non-tender Inspection: gravid Palpation: soft; Negative for tender external exam normal Amniotic Fluid: ROM+plus Back/Spine no CVA tenderness Extremity normal to inspection, full ROM and no clubbing, cyanosis or edema General Extremity: Negative for calf tenderness or edema Skin Lesions: no lesions Rashes: no rashes Psych mental status grossly normal Labs Labs Labs: Blood Type O POSITIVE Antibody Screen NEGATIVE Hct 38.9 % (37-47) Hgb 12.7 g/dL (12.0-15.0) Obstetrics Ultrasound Syphilis Total Ab Non-reactive Rubella IgG Antibody Reactive (Nonreactive) Hep Bs Antigen Non-Reactive (Nonreactive) Hepatitis C Antibody Non-Reactive (Nonreactive) Chlamydia DNA (DU) Negative (Negative) N.gonorrhoeae DNA (DU) Negative (Negative) HIV 1&2 Antibody Non-Reactive (Nonreactive) Glucose 1 Hr 50 gm 103 mg/dL (70-140) Rhogam given: No Assessment & Plan (1) Supervision of normal : QUALIFIERS: Normal : other normal Trimester: second trimester Qualified Code(s): Z34.82 - Encounter for supervision of other normal , second trimester COMMENT: PRR AIDE 06/04/23 surprise PC [place] Michael (2) : QUALIFIERS: Weeks of gestation: 38 weeks Qualified Code(s): Z3A.38 - 38 weeks gestation of COMMENT: neg gbs, NIPT low risk, carrier declined, normal anatomy . PLAN: Plan Patient presents IAL, plan expectant management for , pitocin/AROM PRN if needed. Pain management: undecided GBS negative . Management of any complications: none I have reviewed the [facility] and made any clinically relevant updates.
[2023-05-28] MEDS: Lidocaine 1% (20 ml mdv) 20 ML Vial INFILT (21:25)
--- NOTE | 2023-05-28 21:35 | EX.PCM.OBRPT ---
Assessment & Plan (1) Supervision of normal : QUALIFIERS: Normal : other normal Trimester: second trimester Qualified Code(s): Z34.82 - Encounter for supervision of other normal , second trimester COMMENT: PRR AIDE 06/04/23 surprise PC Miroslava Michael (2) : QUALIFIERS: Weeks of gestation: 38 weeks Qualified Code(s): Z3A.38 - 38 weeks gestation of COMMENT: neg gbs, NIPT low risk, carrier declined, normal anatomy . Maternal Data Information AIDE Calculator Estimated Delivery Date Method Current WG Current Estimate 06/04/23 LMP (Certain) 39w 0d Vaginal Delivery Maternal Presentation Maternal Presentation: Active Labor Operative Information Date of Procedure: 05/28/23 Surgery / Procedure Performed: Spontaneous Vaginal Delivery Type of Anesthesia: None Estimated Blood Loss: 50cc Time of Delivery: 21:17 Findings Description of Procedure: Patient began pushing and delivered the head in the ROGER presentation. The head was delivered atraumatically. A nuchal cord was noted but the was delivering quickly and the anterior and posterior shoulders delivered without complication followed by the rest of the infant and the cord was released then around the waist. The was placed on the maternal abdomen. Delayed cord clamping was employed for approximately 60 seconds. Cord was clamped and cut and gentle traction was applied to the cord and the placenta delivered spontaneously immediately following it was noted to be intact with three-vessel cord. The perineum and vagina were inspected and noted to be intact however the left labia was torn slightly and repaired using a 3-0 vicryl. A groin skin tag was snipped off and sent for pathology. EBL was 50 cc. Patient and infant tolerated delivery well. Presentation: Vertex Amniotic Membrane Rupture Type: Spontaneous Amniotic Fluid Description: Clear Placental Delivery Description: Spontaneous Placenta Disposition: [facility] Cord Vessel Description: 3 Vessels Cord Entanglement: Around neck x 1, loose Infant A Gender: Male (1 minute): 9 (5 minute): 9 Delayed Cord Clamping: Yes Post Vaginal Delivery Medications Given After Delivery: IV Pitocin Episiotomy Description: None (left labial only, no bleeding) Laceration: None Complication Complications: None Multi Select Codes Urinary/Genital Urinary/Genital CPT Codes: 75066 Vaginal Delivery [facility]
--- NOTE | 2023-05-28 21:40 | DCINST_ITS ---
Discharge Instructions Diet Discharge Diet: No restrictions Activity Discharge Activity: Return to Normal Activity, May Not Drive (while taking narcotic pain medications.) and May Shower May resume sexual activity in: 4-6 weeks Dressing / Incision Call your doctor if your incision/area has: Continuous Slow Oozing, Sudden Increased Bleeding, Increased Pain/ Swelling, Increased Redness and Foul Smelling Discharge Follow Up Care Please Follow Up With: Chelsi Gant, DO When: Call [phone] to make an appointment with your doctor in 6 weeks. If you had elevated blood pressure or 4th degree laceration, you will need to be seen in 2 weeks. Test Results: Test results from this visit will be discussed in further detail at your follow- up appointment, if applicable. Discharge Plan Admission Admit Date/Time: 05/28/23 16:12 Attending Provider: Chelsi Gant Primary Care Provider: Care Physician,No Primary Discharge Orders/Prescriptions Prescriptions: No Action PNV-DHA 27 mg iron-1 mg -300 mg capsule 1 cap PO DAILY magnesium 250 mg tablet 250 mg PO DAILY Referrals / Follow Up: Care Physician,No Primary [Primary Care Provider] -
[2023-05-28] MEDS: Oxytocin 15 Units/NS 250ml 15 UNITS/250 ML IV.SOLN 83 UNITS IV (21:54)
[2023-05-28 22:04] LABS: Pathology Specimen OB SEE PATHOLOGY REPORT
[2023-05-28] MEDS: Acetaminophen 500 MG Tablet 1000 MG PO (23:41)
[2023-05-29] VITALS (10 sets, daily range): BP systolic 91–114; BP diastolic 54–76; PULSE 55–105; RESP 14–16; TEMP 36.3–37.3; O2SAT 97–99
[2023-05-29] MEDS: Acetaminophen 500 MG Tablet 1000 MG PO ×3 (07:18→20:22)
[2023-05-29] MEDS: Senna/Docusate Sodium 1 Tablet PO (07:18)
--- NOTE | 2023-05-29 08:03 | PCM.PN.OB ---
Subjective Subjective Patient doing well without complaints. Tolerating PO. Ambulating and voiding without difficulty. feeding well. Denies chest pain, shortness of breath, calf pain/swelling, fevers, chills, lightheadedness. Objective Data Objective Data Vital Signs: Vital Signs Temp Pulse Resp BP Pulse Ox O2 Del Method 97.6 F L 68 14 112/76 99 Room Air 05/29/23 07:23 05/29/23 07:24 05/29/23 07:23 05/29/23 07:24 05/29/23 07:24 05/29/23 07:23 Oxygen Delivery Method Room Air Weight: 174 lb 8 oz Body Mass Index (BMI) 26.5 Intake & Output: Intake and Output for Last 24 Hours 05/27/23 05/28/23 05/29/23 23:59 23:59 23:59 Intake Total 1184.98 / 1184.98 250 / 250 Output Total 1050 / 1050 Balance 134.98 / 134.98 250 / 250 Lab / Micro Data 05/28/23 16:30 Labs: Laboratory Results - last 24 hr 05/28/23 16:30: WBC 10.6, RBC 4.57, Hgb 12.7, Hct 38.9, MCV 85.1, MCH 27.8, MCHC 32.6, RDW Std Deviation 41.9, RDW Coeff of Darrick 13.5, Plt Count 259, MPV 9.7, Immature Gran % (Auto) 0.400, Neut % (Auto) 76.8 H, Lymph % (Auto) 17.2 L, Divide % (Auto) 5.1, Eos % (Auto) 0.2, Baso % (Auto) 0.3, Absolute Neuts (auto) 8.2 H, Absolute Lymphs (auto) 1.83, Nucleated RBC % 0, Syphilis Total Ab Non-reactive ROS Constitutional Constitutional: Reports systems reviewed and no addt'l complaints, except as documented Cardiovascular Cardiovascular: Reports systems reviewed and no addt'l complaints, except as documented Respiratory/Chest Respiratory/Chest: Reports systems reviewed and no addt'l complaints, except as documented Gastrointestinal Gastrointestinal: Reports systems reviewed and no addt'l complaints, except as documented Physical Exam Const alert, oriented x3 and no apparent distress HEENT Head and Scalp: atraumatic Resp normal respiratory effort GI soft to palpation and non-tender Bimanual Exam - Vag & Uterus: uterus non-tender Uterus Palpation: uterus fundus firm (below Umbilicus) Assessment & Plan (1) Normal vaginal delivery: PLAN: Plan s/p PPD # 1 1. routine post delivery care 2. breast feeding- support given 3. rh positive 4. rubella immune
[2023-05-30 00:59] VITALS: BP 106/57; PULSE 127; PULSE 63; O2SAT 79
[2023-05-30 01:03] VITALS: BP 106/57; PULSE 64; RESP 16; TEMP 36.4; O2SAT 97
[2023-05-30 07:55] VITALS: BP 94/54; PULSE 71; RESP 16; TEMP 36.6
[2023-05-30 07:59] VITALS: BP 94/54; PULSE 71
--- NOTE | 2023-05-30 08:13 | PCM.PN.OB ---
Subjective Subjective Patient doing well without complaints. Tolerating PO. Ambulating and voiding without difficulty. feeding well. Denies chest pain, shortness of breath, calf pain/swelling, fevers, chills, lightheadedness. Objective Data Objective Data Vital Signs: Vital Signs Temp Pulse Resp BP Pulse Ox O2 Del Method 97.6 F L 71 16 94/54 L 97 Room Air 05/30/23 01:03 05/30/23 07:59 05/30/23 01:03 05/30/23 07:59 05/30/23 01:03 05/30/23 01:03 Oxygen Delivery Method Room Air Weight: 174 lb 8 oz Body Mass Index (BMI) 26.5 Intake & Output: Intake and Output for Last 24 Hours 05/28/23 05/29/23 05/30/23 23:59 23:59 23:59 Intake Total 1184.98 / 1184.98 250 / 250 Output Total 1050 / 1050 Balance 134.98 / 134.98 250 / 250 Lab / Micro Data 05/28/23 16:30 Labs: Laboratory Results - last 24 hr 05/28/23 16:30: Blood Type O POSITIVE, Antibody Screen NEGATIVE ROS Constitutional Constitutional: Reports systems reviewed and no addt'l complaints, except as documented Cardiovascular Cardiovascular: Reports systems reviewed and no addt'l complaints, except as documented Respiratory/Chest Respiratory/Chest: Reports systems reviewed and no addt'l complaints, except as documented Gastrointestinal Gastrointestinal: Reports systems reviewed and no addt'l complaints, except as documented Physical Exam Const alert, oriented x3 and no apparent distress HEENT Head and Scalp: atraumatic Resp normal respiratory effort GI soft to palpation and non-tender Bimanual Exam - Vag & Uterus: uterus non-tender Uterus Palpation: uterus fundus firm (below Umbilicus) Assessment & Plan (1) Normal vaginal delivery: PLAN: Plan s/p PPD # 2 1. routine post delivery care 2. breast feeding- support given 3. rh positive 4. rubella immune
--- NOTE | 2023-05-30 09:58 | CASEMGMT ---
Social Work Assessment Labor and Delivery Unit Patient Address:[address] [place] [address] [address] [place] [address] Phone number: [phone] Date of Referral: 05/29/23 Time of Referral:? 610 Referred By: Chelsi Gant Date of Intervention: ??05/30/23 Time of Intervention:? 0900 Reason for Referral:? history of anxiety and depression Sw completed chart review and acknowledges social work consult due to maternal mental health history positive for anxiety and depression. Sw presented to room and introduced self to mother of baby (MOB- Leslee) and father of baby (FOB- Marc). Sw explained sw role during hospitalization and completed psychosocial assessment. History obtained from: medical records, MOB and FOB Household composition: Currently residing in the family home is KAILEE, PERLA, their 20 month old daughter, Miroslava, and now baby when ready for discharge. Patient's parent/guardian status:? ?MOB states that she and PERLA have been together for 6 years, they met through mutual friends. No reports of domestic violence or intimate partner violence. Medical History: KAILEE is 27 year old female who is 2, para 1- now 2 following labor and delivery of . ?KAILEE received routine care during with [place]. KAILEE presented to hospital and delivered baby on 05/28/23 via vaginal delivery at 39 weeks gestation. Baby boy, named Raymundo Johns, was born weighing 7lb 15oz and his apgars were 9 and 9 at one and five minutes of life respectfully. MOB states that she is breast feeding and it is going well. KAILEE reports that baby will be followed by Dr. Isela Linn for pediatrics. Educational Status:? Both parents graduated from high school. MOB has her nursing degree. No concerns with reading, learning or comprehension. Financial Status: Both parents are gainfully employed. FOMera works for a [employer] company and is able to take 4 weeks off of work. MOB is a labor and delivery nurse at [employer], she is able to take 12 weeks off of work. Supplies:?Parents have obtained all necessary baby supplies, including: car seat, safe sleep space, clothes, diapers, wipes and a breast pump. ? Childcare/Caregiver(s):?MOB will be the primary caregiver to baby along with FOB when he is not working. MOB states that they have some family members and a friend that will help with childcare when both parents have to work. Transportation:?? No transportation barriers, both parents have their drivers license and reliable means of transportation. Programs/Agencies Involved: ??Parents are not connected to any community resources that provide financial assistance at this time. ? Children Services/Legal Issues:??No history of involvement, no issues or concerns warranting referral to be made at this time. ? Behavioral Health Issues: ??Mental Health History:?PERLA denies any mental health diagnoses or issues at this time. MOB states that she has history of anxiety and depression that began from her adolescence. MOB states that she did experience anxiety after having her first baby. MOB states that she is very open about her mental health and talks openly regarding any issues she is experiencing with FOB. MOB states that she?? Substance Use History:?MOB denies substance use prior to and during . ? Family History:?KAILEE reports that her mother is a heroin addict and she has not seen her for a long time. MOB states that her father is also an alcoholic and she only seems him every once in a while. MOB states that neither of her parents will be responsible for providing childcare. ? Drug Screens: ?No drug screens observed in chart review. Family/Social Stressors:?Parents deny any issues, concerns or stressors at this time. Support Systems: MOB states that PERLA, her sisters, paternal sisters and paternal grandparents are their biggest supports. Depression/Shaken Baby/Safe Sleeping:? Vita educated parents on signs and symptoms of baby blues and depression and anxiety to be on the lookout for. MOB states that she is familiar of what to lookout for. MOB states that she knows that if she were to struggle with her mental health during this period that she has people she knows that she can talk to. FOB stated that if MOB were to struggle with her mental health during her period he would be able to recognize that. FOB states that he knows how to support MOB and help her. Vita educated parents on shaken baby prevention and ABCs of safe sleep. Parents express understanding. ASSESSMENT:? MOB and baby admitted following labor and delivery. MOB and FOB both present and actively engaged in completion of psychosocial assessment. MOB has obtained all necessary baby supplies and has natural supports in place. MOB expresses understanding of mental health symptoms to be on the look out for during this period. MOB expresses understanding that she is predisposed to experience depression/anxiety following delivery of baby due to her mental health history. MOB made and maintained eye contact with sw throughout completion of assessment. MOB and FOB both talkative and polite. Parents express appreciation for sw support and list of resources provided. Sw provided parents with list of community resources that are available to them at this time (counseling, food, Help Me Grow, etc.), shaken baby prevention and ABCs of safe sleep, and mental health information. PLAN:? MOB and baby to be discharged when medically ready. ?No other services requested or indicated. Rosy Briones, FERRY HAND, CLERK CASHIER
--- NOTE | 2023-06-03 13:42 | NURSING ---
06/03/23 1342: Follow up phone call attempted, no ans, LVM.
== END 2023-05-30 09:20 | disposition home or self-care (01) | DRG 807 ==
PROVIDERS: Admitting Provider Obstetrics & Gynecology; Visit Provider Obstetrics & Gynecology
DX: O70.0 First degree perineal laceration during delivery (principal); Z37.0 Single live birth; L91.8 Other hypertrophic disorders of the skin; O69.81X0 Labor and delivery complicated by cord around neck, without compression, not applicable or unspecified; O99.72 Diseases of the skin and subcutaneous tissue complicating childbirth; Z3A.39 39 weeks gestation of pregnancy
CPT/HCPCS: 59025; 59050; 85025; 86780; 86850; 86900; 86901; 88305; 99221; J7120; G0378

== ENCOUNTER → 2024-06-03 | Outpatient (CLI) | payer BC, SELFPAY ==
[2024-06-07 00:07] LABS: Chlamydia By Nucleic Acid AMP Negative (Negative); Gonococcus By Nucleic Acid AMP Negative (Negative)
== END | disposition home or self-care (01) ==
LOC: LABSPEC 16:48
PROVIDERS: Referring Provider Advanced Practice Midwife; Visit Provider Advanced Practice Midwife
DX: Z34.90 Encounter for supervision of normal pregnancy, unspecified, unspecified trimester (principal); Z12.4 Encounter for screening for malignant neoplasm of cervix
CPT/HCPCS: 87086; 87491; 87591

== ENCOUNTER → 2024-06-28 | Outpatient (CLI) | payer BC, SELFPAY ==
[2024-06-28 16:07] LABS: Absolute Lymphocyte Count 2.25 X10^3/uL (0.83-4.51); Absolute Neutrophil Count 6.5 X10^3/uL (2.0-7.7); Basophil# 0.03 X10^3/uL; Basophil% 0.3 % (0-1); Eosinophil# 0.04 X10^3/uL; Eosinophils% 0.4 % (0-5); Hematocrit 36.9 % (37-47); Hemoglobin 12.3 g/dL (12.0-15.0); Lymphocyte # 2.25 X10^3/ul (0.83-4.51); Lymphocyte % 23.8 % (19-41); Mean Corp Hgb Conc 33.3 g/dL (32-36); Mean Corpuscular Hgb 28.1 pg (27.0-32.0); Mean Corpuscular Volume 84.4 fL (81-99); Monocyte# 0.58 X10^3/uL; Monocyte% 6.1 % (0-10); NRBC Flagged by Analyzer 0 % (0-5); Neutrophil # 6.53 X10^3/uL (2.7-7.7); Neutrophil % 69.1 % (47-70); Platelet Count 290 K/mm3 (150-450); RBC Distribution Width CV 12.9 % (11.6-14.6); RBC Distribution Width SD 39.8 fl (35.1-43.9); Red Blood Count 4.37 M/mm3 (4.2-5.4); White Blood Count 9.5 K/mm3 (4.4-11.0)
[2024-06-28 17:00] LABS: HIV Nonreactive (Nonreactive); Hepatitis B Surface Antigen Nonreactive (Nonreactive); Hepatitis C Antibody Nonreactive (Nonreactive); Rubella IgG REAC (Nonreactive); Syphilis Antibodies Nonreactive (Nonreactive)
== END | disposition home or self-care (01) ==
LOC: BWCLAB 15:05
PROVIDERS: Visit Provider Advanced Practice Midwife
DX: Z34.81 Encounter for supervision of other normal pregnancy, first trimester (principal)
CPT/HCPCS: 36415; 85025; 86703; 86762; 86780; 86803; 86850; 86900; 86901; 87340

== ENCOUNTER → 2024-08-23 | Outpatient (CLI) | payer BC, SELFPAY ==
--- NOTE | 2024-08-23 07:55 | US_ITS ---
PROCEDURE: OB ANATOMY W/ TRANSVAGINAL 08/23/2024 REASON FOR EXAM: CERVICAL LENGTH/ANATOMY TECHNIQUE: OB ANATOMY W/ TRANSVAGINAL COMPARISON: None FINDINGS Number: 1 Position: Breech Placental Position: Posterior and low-lying. The tip of the placenta is at 1.5 cm from the cervical os. Placental Abnormalities: Low-lying placenta. DIMENSIONS: Biparietal Diameter: 4.46 cm: 19 weeks and 3 days: 28 percentile. / Head Circumference: 17.69 cm: 20 weeks and 1 day: 50 percentile/ Abdominal Circumference: 16.23 cm: 21 weeks and 2 days: 84 percentile/ Femur Length: 3.17 cm: 19 weeks and 6 days: 37 percentile./ ESTIMATED WEIGHT: 361 g plus/-54 g ESTIMATED WEIGHT PERCENTILE (24+ weeks): 75 ESTIMATED GESTATIONAL AGE: Baseline: 20 weeks and 0 days By Ultrasound: 20 weeks and 1 day ESTIMATED DATE OF DELIVERY: Baseline: January 11, 2024 By Ultrasound: January 09, 2025 BIOPHYSICAL ASSESSMENT: Amniotic Fluid Volume: 4.2 cm Amniotic Fluid Index: Within normal range. (8-24 cm normal range) Cardiac Motion: 149 beats per minute (average) Trunk and Limb Motion: Present. MATERNAL ANATOMY: Adnexa: Neither maternal ovary is successfully identified. Cervical Length (if measured): 4.3 cm ANATOMY: Spine: Unremarkable Cranium: Unremarkable Cerebellum: Unremarkable Cisterna Magna: Unremarkable Cavum Septum Pellucidi: Unremarkable Lateral Ventricles: Unremarkable Choroid Plexus: Unremarkable Midline Falx: Unremarkable Nuchal Fold: Unremarkable Heart: Unremarkable Stomach: Unremarkable Kidneys: Unremarkable Bladder: Unremarkable Umbilical Cord: Normal placental insertion. cord insertion not seen well. Extremities: Unremarkable US/OB Anatomy w/ Transvaginal IMPRESSION: Single live intrauterine gestation with a mean gestational age of 20 weeks and 1 day. Posterior low-lying placenta. Follow-up recommended. Reading Location: [facility]
== END | disposition home or self-care (01) ==
LOC: OPMRI 07:54 → OPUS 07:55
PROVIDERS: Referring Provider Obstetrics & Gynecology; Visit Provider Obstetrics & Gynecology
DX: Z34.90 Encounter for supervision of normal pregnancy, unspecified, unspecified trimester (principal)
CPT/HCPCS: 76805; 76817

== ENCOUNTER → 2024-10-18 | Outpatient (CLI) | payer BC, SELFPAY ==
[2024-10-18 11:30] LABS: Glucose Challenge Gest 1H 50g 124 mg/dL (70-140)
== END | disposition home or self-care (01) ==
LOC: BWCLAB 08:05
PROVIDERS: Obstetrics & Gynecology; Referring Provider Advanced Practice Midwife; Visit Provider Advanced Practice Midwife
DX: Z34.82 Encounter for supervision of other normal pregnancy, second trimester (principal); Z13.1 Encounter for screening for diabetes mellitus
CPT/HCPCS: 36415; 82950

== ENCOUNTER → 2024-10-19 | Outpatient (CLI) | payer BC, SELFPAY ==
--- NOTE | 2024-10-19 07:52 | US_ITS ---
PROCEDURE: OB LIMITED WITH BIOMETRICS 10/19/2024 REASON FOR EXAM: LOW LYING PLACENTA TECHNIQUE: OB LIMITED WITH BIOMETRICS COMPARISON: Prior study dated August 23, 2024. FINDINGS LMP: April 05, 2024. Number: 1 Position: Vertex Placental Position: Posterior and not low-lying. Placental Abnormalities: No evidence of previa. DIMENSIONS: Biparietal Diameter: 6.9 cm: 27 weeks and 4 days: 21 percentile/ Head Circumference: 26.1 cm: 28 weeks and 3 days: 25 percentile/ Abdominal Circumference: 24.9 cm: 29 weeks and 1 day: 71 percentile/ Femur Length: 5.3 cm: 28 weeks and 2 days: 37 percentile/ ESTIMATED WEIGHT: 1262 g plus/-189 g ESTIMATED WEIGHT PERCENTILE (24+ weeks): 57 ESTIMATED GESTATIONAL AGE: Baseline: 28 weeks and 1 day By Ultrasound: 28 weeks and 2 days ESTIMATED DATE OF DELIVERY: Baseline: January 10, 2025 By Ultrasound: January 09, 2025 BIOPHYSICAL ASSESSMENT: Amniotic Fluid Volume: 5 cm Amniotic Fluid Index: 15.2 cm (8-24 cm normal range) Cardiac Motion: 137 beats per minute (average) Trunk and Limb Motion: Present. MATERNAL ANATOMY: Adnexa: Neither maternal ovary is successfully identified. Cervical Length (if measured): 4.2 cm US/OB Limited With Biometrics IMPRESSION: Single live intrauterine gestation with a mean gestational age of 28 weeks and 2 days. The measurements obtained today fall with the normal expected range. Reading Location: [facility]
== END | disposition home or self-care (01) ==
LOC: OPUS 07:51
PROVIDERS: Referring Provider Obstetrics & Gynecology; Visit Provider Obstetrics & Gynecology
DX: O44.42 Low lying placenta NOS or without hemorrhage, second trimester (principal); Z3A.00 Weeks of gestation of pregnancy not specified
CPT/HCPCS: 76816

== ENCOUNTER → 2024-11-05 | Outpatient (CLI) | payer BC, SELFPAY ==
[2024-11-05 16:01] LABS: Hematocrit 34.0 % (37-47); Hemoglobin 11.2 g/dL (12.0-15.0); Immature Granulocytes Count 0.090 X10^3/uL (0.0-0.0); Mean Corp Hgb Conc 32.9 g/dL (32-36); Mean Corpuscular Volume 85.9 fL (81-99); Mean Platelet Vol. 9.6 fl (6.2-12.0); NRBC Flagged by Analyzer 0 % (0-5); Platelet Count 280 K/mm3 (150-450); RBC Distribution Width CV 13.2 % (11.6-14.6); RBC Distribution Width SD 41.4 fl (35.1-43.9); Red Blood Count 3.96 M/mm3 (4.2-5.4); White Blood Count 11.1 K/mm3 (4.4-11.0)
[2024-11-05 16:28] LABS: HIV Nonreactive (Nonreactive); Syphilis Antibodies Nonreactive (Nonreactive)
== END | disposition home or self-care (01) ==
LOC: BWCLAB 14:57
PROVIDERS: Referring Provider Obstetrics & Gynecology; Visit Provider Obstetrics & Gynecology
DX: Z34.82 Encounter for supervision of other normal pregnancy, second trimester (principal)
CPT/HCPCS: 36415; 85025; 86703; 86780

== ENCOUNTER → 2024-12-06 | Outpatient (CLI) | payer BC, SELFPAY | END | disposition home or self-care (01) | LOC: LABSPEC 16:21 | PROVIDERS: Visit Provider Advanced Practice Midwife | DX: Z34.82 Encounter for supervision of other normal pregnancy, second trimester (principal) | CPT/HCPCS: 87081 ==

== ENCOUNTER 2025-01-01 01:12 | Inpatient (IN) | payer BC, SELFPAY ==
[2024-12-31 22:35] VITALS: BMI 27.3
[2024-12-31 22:40] VITALS: PULSE 152; O2SAT 81
[2024-12-31 22:43] VITALS: PULSE 91; O2SAT 97
[2024-12-31 22:45] VITALS: BP 115/71; PULSE 90
[2025-01-01] VITALS (26 sets, daily range): BP systolic 100–126; BP diastolic 55–74; PULSE 67–98; RESP 15–18; TEMP 35.8–37.1; O2SAT 90–100
[2025-01-01 00:11] LABS: ROM Internal Control Test YES-OK TO RESULT pt. (Internal QC); ROM Patient Test Negative (Negative); Record Kit Lot#, ROM+ K3607
[2025-01-01 02:55] LABS: Hematocrit 34.8 % (37-47); Hemoglobin 11.3 g/dL (12.0-15.0); Immature Granulocytes Count 0.070 X10^3/uL (0.0-0.0); Mean Corp Hgb Conc 32.5 g/dL (32-36); Mean Corpuscular Volume 83.9 fL (81-99); Mean Platelet Vol. 9.4 fl (6.2-12.0); NRBC Flagged by Analyzer 0 % (0-5); Platelet Count 270 K/mm3 (150-450); RBC Distribution Width CV 13.6 % (11.6-14.6); RBC Distribution Width SD 41.8 fl (35.1-43.9); Red Blood Count 4.15 M/mm3 (4.2-5.4); White Blood Count 12.2 K/mm3 (4.4-11.0)
--- NOTE | 2025-01-01 03:36 | PCM.HP.OB ---
HPI - General General Date of Admission: 01/01/25 HPI Narrative ELVIN MCINTOSH, is a 29 y/o @ 38 weeks 5 days who presents to L&D with painful contractions. She was 4 cm in the office this week and is now 5 cm. She appears comfortable and requests to labor in the tub and have membranes ruptured if possible. Maternal Data Information AIDE Calculator Estimated Delivery Date Method Current WG Current Estimate 01/10/25 LMP (Certain) 38w 5d Other Estimates 01/10/25 Ultrasound #1 38w 5d PFSH PFSH Medical History (Updated 01/01/25 @ 01:58 by Valeria Maxwell) Autoimmune disease Anxiety H/O: depression Home Medications ?Medication ?Instructions ?Recorded ?Last Taken ?Type multivitamin no.47-iron fum 27 1 cap PO DAILY Check with primary 01/23/21 12/31/24 History mg-folate no.1 1 mg-dha 300 mg doctor capsule (PNV-DHA) ondansetron 4 mg disintegrating 4 mg PO Q6H PRN nausea and 06/28/24 Unknown Rx tablet vomiting #30 tabs Allergy/AdvReac Type Severity Reaction Status Date / Time No Known Allergies Allergy Verified 12/31/24 22:58 Family History Other Diabetes Social History adopted: No household members: spouse and children number of children: 2 current occupational status: employed 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 current occupational exposures/hazards: No pets and animals: Yes pets and animals: farm animals history of recent travel: Yes ( - Mar 2024) out of state: Yes out of country: No sexually active: Yes Smoking Status: Never smoker second hand exposure: No alcohol intake: current alcohol intake frequency: holidays/special occasions only details: not while substance use type: does not use well-balanced diet: daily or most days caffeine: Yes Type: coffee eating out: rarely or never during the past year weight has: other details: Has 11mo old - BF rob/mormon: Pentec[employer]al seatbelt use: always do you feel safe at home: Yes additional social history: : 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 Date Name GA/Weeks Outcome Route Bth Weight Gen Labor Lgth Anesthesia Del Locatn Provider FOB 08/30/21 Miroslava 39 live - full term 8lbs 8oz Female local [facility] Kay Tran 05/28/23 Raymundo 39 live - full term 7lbs 15oz Male none [facility] Willem Tran Delivery Date: 08/30/21 Last Updated by: Meghann Chopra see problem list for complications, and ial sm 39 girl Miroslava Visit Details Expected Delivery Route/Plan Labor Preferences- CB/BF classes: [] labor support person: [] labor intervention preferences: [] pain management options preferred: [] cut cord/dad catch: [] : [] PP control planned: [] discussed possible routes of delivery and associated risks: [] special requests: [] Plans Covid status: [] Flu vaccine: [] Tdap vaccine: declined Rhogam: na LARC form signed: declined movement and labor precautions reviewed. Problem list reviewed and updated with the most current plan of care details and appropriate orders placed. Relevant counseling for the gestational age provided. Continue routine care and follow up unless otherwise noted in visit notes/problem list details OB Flowsheet Initial Weight: 136 lb Date <del>?</del> EGA Weight BP Urine Prot <del>?</del> Glucose FHR FuHt Pres Dilation <del>?</del> Effaced St Visit Note 06/03/24 <del>?</del> 8w 3d 136 lb 4 oz (+4 oz) 120/81 <del>?</del> 172 <del>?</del> KW- CRL cons with dates. accepts NIPT. 06/28/24 <del>?</del> 12w 0d 135 lb 2 oz (-14 oz) 133/89 Negative <del>?</del> Negative 162 <del>?</del> JV- CRL 12 weeks 3 days today. no complaints other than some nausea. zofran sent to [facility]. NIPT labs today 07/30/24 <del>?</del> 16w 4d 139 lb 8 oz (+3 lb 8 oz) 105/70 Negative <del>?</del> Negative 145 <del>?</del> KW-no vb/cramping. good fm. headaches have resolved. 08/24/24 <del>?</del> 20w 1d 144 lb (+8 lb) 112/66 Negative <del>?</del> Negative 145 <del>?</del> MH-No VB, cramping. Good FM. Denies concerns 09/23/24 <del>?</del> 24w 3d 155 lb (+19 lb) 111/74 Negative <del>?</del> Negative 145 24 <del>?</del> SM- no vb lof good fm no reuglar ctx 10/18/24 <del>?</del> 28w 0d 163 lb 3 oz (+27 lb 3 oz) 117/79 Negative <del>?</del> Negative 140 28 <del>?</del> KW- no vb/lof/ctx. good fm. glucose labs today. LARC today. declines Tdap. concerns with pubic pain- has chiropractor appt in oct. 11/05/24 <del>?</del> 30w 4d 167 lb 7 oz (+31 lb 7 oz) 114/70 Negative <del>?</del> Negative 135 32 <del>?</del> Sm- no vb lof good fm no regular ctx 11/12/24 <del>?</del> 31w 4d 169 lb (+33 lb) 114/72 Negative <del>?</del> Negative 140 32 <del>?</del> KW- no vb/lof/ctx. good fm. chiropractor for pelvic pain. 11/22/24 <del>?</del> 33w 0d 170 lb 7 oz (+34 lb 7 oz) 118/74 Negative <del>?</del> Negative 130 33 <del>?</del> KW- no vb/lof/ctx. good fm 12/06/24 <del>?</del> 35w 0d 176 lb 5 oz (+40 lb 5 oz) 115/81 Negative <del>?</del> Negative 130 35 Cephalic 1.5 <del>?</del> 60 -2 KW- no vb/lof/ctx. good fm. requesting SVE today due to vaginal pressure. GBS today. 12/13/24 <del>?</del> 36w 0d 176 lb 3 oz (+40 lb 3 oz) 102/71 Negative <del>?</del> Negative 125 36 Cephalic 1.5 <del>?</del> 65 -1 KW- no vb/lof some ctx. good fm. 12/20/24 <del>?</del> 37w 0d 175 lb 3 oz (+39 lb 3 oz) 124/77 Negative <del>?</del> Negative 130 37 Cephalic 1.5 <del>?</del> 80 -1 JV- TERRA today is 11. normal AC on bedside scan. no lof, vaginal bleeding, or dec fm. 12/27/24 <del>?</del> 38w 0d 178 lb 5 oz (+42 lb 5 oz) 114/73 Negative <del>?</del> Negative 129 38 Cephalic 2.5 <del>?</del> 80 -1 JV- no lof, vaginal bleeding, or dec fm. wants membrane sweep next week. 12/30/24 <del>?</del> 38w 3d 178 lb 2 oz (+42 lb 2 oz) 114 Negative <del>?</del> Negative 145 38 Cephalic 3.5 <del>?</del> 80 -1 JV- no lof, vaginal bleeding, or dec fm. no complaints today. ROS Constitutional Constitutional: Denies change in weight, fatigue, fever(s), headache(s), poor appetite or weakness Eyes Eyes: Denies blurry vision, change in vision, seeing flashes or spots in vision ENT HEENT: Denies dizziness, headache(s), loss taste/smell or sore throat Cardiovascular Cardiovascular: Denies chest pain, dizziness, dyspnea, irregular heart rhythm, leg edema, palpitations, rapid heart rate or vomiting Respiratory/Chest Respiratory/Chest: Denies chest tightness, cough, dyspnea or breast pain Gastrointestinal Gastrointestinal: Denies abdominal pain, anorexia, constipation, cramping, diarrhea, hemorrhoids or vomiting Genitourinary Genitourinary: Denies dysuria, flank pain, genital lesions, genital pain, urinary frequency or urinary urgency Musculoskeletal Musculoskeletal: Denies back pain, difficulty walking, joint pain, limited range of motion, muscle cramps or numbness Integumentary Integumentary: Denies lesions or unusual bruising Neurologic Neurologic: Denies abnormal movements, abnormal speech, dizziness, numbness, seizure-like activity or syncope Psychiatric Psychiatric: Denies anxiety, behavioral changes, change in appetite, change in libido, cognitive impairment, confusion, depression, difficulty concentrating, hallucinations or suicidal thoughts Endocrine Endocrinology: Denies excessive sweating, polydipsia or polyuria Hematologic/Lymphatic Hematologic/Lymphatic: Denies easy bleeding, easy bruising or lymphadenopathy Allergic/Immunologic Allergic/Immunologic: Denies itchy eyes, lip swelling, seasonal rhinorrhea, rhinitis, throat swelling, tongue swelling, eczemia, wheezing or asthma Vital Signs Vital Signs Vital Signs: 12/31/24 22:40 12/31/24 22:40 12/31/24 22:43 Pulse Rate 152 H 91 Blood Pressure BP Systolic BP Diastolic Pulse Ox 81 12/31/24 22:43 12/31/24 22:45 12/31/24 22:45 Pulse Rate 90 Blood Pressure 115/71 BP Systolic 115 BP Diastolic 71 Pulse Ox 97 01/01/25 02:21 01/01/25 02:21 01/01/25 02:22 Pulse Rate 75 80 Blood Pressure 126/70 H BP Systolic 126 BP Diastolic 70 Pulse Ox 01/01/25 02:22 Pulse Rate Blood Pressure BP Systolic BP Diastolic Pulse Ox 98 Weight Weight: 180 lb Body Mass Index (BMI) 27.3 Physical Exam Const alert, oriented x3, no apparent distress and healthy appearing General Appearance: cooperative; Negative for anxious HEENT normocephalic Face and Sinus: normal facial exam Eyes EOMs intact bilaterally and no scleral icterus General Eye: normal appearance of both eyes Neck full ROM Resp normal respiratory effort Effort and Inspection: able to speak in complete sentences GI soft to palpation and non-tender Inspection: gravid Palpation: soft; Negative for tender Extremity normal to inspection, full ROM and no clubbing, cyanosis or edema General Extremity: Negative for calf tenderness or edema Skin Lesions: no lesions Rashes: no rashes Psych mental status grossly normal Labs Labs Labs: Blood Type O POSITIVE Antibody Screen NEGATIVE Hct, (37-47) 34.8 % L Hgb, (12.0-15.0) 11.3 g/dL L Obstetrics Ultrasound Syphilis Total Ab, (Nonreactive) Nonreactive Rubella IgG Antibody, (Nonreactive) REAC Hep Bs Antigen, (Nonreactive) Nonreactive Hepatitis C Antibody, (Nonreactive) Nonreactive Chlamydia DNA (DU), (Negative) Negative N.gonorrhoeae DNA (DU), (Negative) Negative HIV 1&2 Antibody, (Nonreactive) Nonreactive Glucose 1 Hr 50 gm, (70-140) 124 mg/dL Rhogam given: No Assessment & Plan (1) Supervision of normal : QUALIFIERS: Normal : other normal Trimester: second trimester Qualified Code(s): Z34.82 - Encounter for supervision of other normal , second trimester COMMENT: PRR,, AIDE 01/10,surprise PC: Miroslava & Raymundo, : Marc (2) : QUALIFIERS: Weeks of gestation: 38 weeks Qualified Code(s): Z3A.38 - 38 weeks gestation of COMMENT: GBS neg, NIPT low risk. carrier afp declined. nl anatomy. (3) H/O: depression: COMMENT: on medication in the past, not currently; stable (4) Anxiety: COMMENT: on medication in the past, not currently; stable PLAN: Plan Patient presents IAL, plan expectant management for , pitocin/AROM PRN Pain management: none . GBS neg. Management of any complications: none I have reviewed the [facility] and made any clinically relevant updates.
[2025-01-01 03:52] LABS: Syphilis Antibodies Nonreactive (Nonreactive)
[2025-01-01] MEDS: Oxytocin 15 Units/NS 250ml 15 UNITS/250 ML IV.SOLN 2 UNITS IV (08:34)
[2025-01-01] MEDS: Lactated Ringers 1,000 ML 50 ML IV (08:35)
--- NOTE | 2025-01-01 12:15 | EX.PCM.OBVAG ---
Assessment & Plan (1) Supervision of normal : QUALIFIERS: Normal : other normal Trimester: second trimester Qualified Code(s): Z34.82 - Encounter for supervision of other normal , second trimester COMMENT: PRR,, ADIE 01/10,surprise PC: Miroslava & Raymundo, : Marc (2) : QUALIFIERS: Weeks of gestation: 38 weeks Qualified Code(s): Z3A.38 - 38 weeks gestation of COMMENT: GBS neg, NIPT low risk. carrier afp declined. nl anatomy. (3) H/O: depression: COMMENT: on medication in the past, not currently; stable (4) Anxiety: COMMENT: on medication in the past, not currently; stable Maternal Data Information AIDE Calculator Estimated Delivery Date Method Current WG Current Estimate 01/10/25 LMP (Certain) 38w 5d Other Estimates 01/10/25 Ultrasound #1 38w 5d Final AIDE: 01/10/25 Final AIDE Source: LMP Vaginal Delivery Maternal Presentation Maternal Presentation: Active Labor Type of Induction: Pitocin and Amniotomy Vaginal Delivery Information Procedure Performed: Spontaneous Vaginal Delivery Surgeon/Practitioner: Chelsi Gant Date of Procedure: 01/01/25 Pre-Procedure Diagnosis: @ 38 weeks, 5 days, active labor Post-Procedure Diagnosis: @ 38 weeks, 5 days, active labor Type of anesthesia: None Estimated Blood Loss: 100cc Time of Delivery: 12:01 Findings Description of procedure: Patient began pushing and delivered the head in the AC presentation. The head was delivered atraumatically. The anterior and posterior shoulders delivered without complication followed by the rest of the and the infant was placed on the maternal abdomen. Delayed cord clamping was employed for approximately 60 seconds. Cord was clamped and cut and gentle traction was applied to the cord and the placenta delivered spontaneously immediately following it was noted to be intact with three-vessel cord. The perineum and vagina were inspected and noted to have no laceration. EBL was 100 cc. Patient and infant tolerated delivery well. Procedure findings: viable female Kollins Presentation: Vertex Amniotic Membrane Rupture Type: Artificial Amniotic Fluid Description: Clear Placental Delivery Description: Spontaneous Placenta Disposition: [facility] Specimen collected: No Cord Vessel Description: 3 Vessels Cord Entanglement: None A Gender: Female (1 minute): 9 (5 minute): 9 Delayed Cord Clamping: Yes Immunochemist csm consultant: No Post Vaginal Deli Medications given after delivery: IV Pitocin Episiotomy Description: None Laceration: None Complication Complications: No Multi Select Codes Urinary/Genital Urinary/Genital CPT Codes: 56824 Vaginal Delivery Only
--- NOTE | 2025-01-01 12:18 | DCINST_ITS ---
Discharge Instructions
--- NOTE | 2025-01-01 12:18 | PCM.DC ---
Discharge Instructions DC O2, CPAP, BIPAP needs Home O2 Discharge instructions: No Dressing / Incision Discharge Activity: Return to Normal Activity, May Not Drive (while taking narcotic pain medications.) and May Shower May resume sexual activity in: 4-6 weeks Dressing / Incision Call your doctor if your incision/area has: Continuous Slow Oozing, Sudden Increased Bleeding, Increased Pain/ Swelling, Increased Redness and Foul Smelling Discharge Follow Up Care Please Follow Up With: Chelsi Gant DO When: Call [phone] to make an appointment with your doctor in 6 weeks. If you had elevated blood pressure or 4th degree laceration, you will need to be seen in 2 weeks. Test Results: Test results from this visit will be discussed in further detail at your follow-up appointment, if applicable. Discharge Plan Admission Admit Date/Time: 01/01/25 01:12 Attending Provider: Chelsi Gant Primary Care Provider: Care Physician,No Primary Discharge Orders/Prescriptions Prescriptions: No Action PNV-DHA 27 mg iron-1 mg -300 mg capsule 1 cap PO DAILY ondansetron 4 mg tablet,disintegrating 4 mg PO Q6H PRN (Reason: nausea and vomiting) Qty: 30 5RF Referrals / Follow Up: Care Physician,No Primary [Primary Care Provider, Medical]
[2025-01-01] MEDS: GLYCERIN/WITCH HAZEL (TUCKS) MED..PAD 1 EACH TOPICAL (18:08)
[2025-01-02 03:04] VITALS: BP 107/68; PULSE 66; PULSE 68; PULSE 71; RESP 15; TEMP 36.9; O2SAT 99
[2025-01-02 07:55] VITALS: BP 110/66; PULSE 67; PULSE 70; RESP 18; TEMP 36.8; O2SAT 98
[2025-01-02 07:56] VITALS: PULSE 70; O2SAT 98
--- NOTE | 2025-01-02 11:12 | PCM.PN.OB ---
Subjective Subjective Patient doing well without complaints. Tolerating PO. Ambulating and voiding without difficulty. Feeding well. Denies chest pain, shortness of breath, calf pain/swelling, fevers, chills, lightheadedness. Objective Data Objective Data Vital Signs: Vital Signs Temp Pulse Resp BP Pulse Ox O2 Del Method 98.2 F 70 18 110/66 98 Room Air 01/02/25 07:55 01/02/25 07:56 01/02/25 07:55 01/02/25 07:55 01/02/25 07:56 01/02/25 07:55 Oxygen Delivery Method Room Air Weight: 180 lb Body Mass Index (BMI) 27.3 Intake & Output: Intake and Output for Last 24 Hours 12/31/24 01/01/25 01/02/25 23:59 23:59 23:59 Intake Total 426.67 / 426.67 Output Total 400 / 400 Balance 26.67 / 26.67 Lab / Micro Data 01/01/25 02:30 ROS Constitutional Constitutional: Denies chills, fatigue, fever(s), poor appetite or weakness Eyes Eyes: Denies blurry vision, change in vision, seeing flashes or spots in vision ENT HEENT: Denies dizziness, headache(s), loss taste/smell or sore throat Cardiovascular Cardiovascular: Denies chest pain, dizziness, dyspnea, irregular heart rhythm, palpitations or rapid heart rate Respiratory/Chest Respiratory/Chest: Denies chest tightness, cough, dyspnea or breast pain Gastrointestinal Gastrointestinal: Denies abdominal pain, constipation or vomiting Genitourinary Genitourinary: Denies dysuria or flank pain Musculoskeletal Musculoskeletal: Denies difficulty walking, joint pain, limited range of motion or numbness Neurologic Neurologic: Denies abnormal movements, abnormal speech, dizziness, numbness, seizure-like activity or syncope Psychiatric Psychiatric: Denies anxiety, behavioral changes, change in appetite, confusion, depression or suicidal thoughts Physical Exam Const alert, oriented x3 and no apparent distress General Appearance: cooperative and comfortable Resp normal respiratory effort Cardio regular rate GI normal to inspection, nondistended, normoactive bowel sounds GI Narrative: uterus is firm below umbilicus Palpation: soft Back/Spine no CVA tenderness and thoraco-lumbar ROM normal Extremity normal to inspection, no clubbing, cyanosis or edema, no calf tenderness and no pedal edema Psych mental status grossly normal, thought process normal, cooperative, affect normal, speech normal, activity/motor behavior normal, denies homicidal ideation and denies suicidal ideation Assessment & Plan (1) Vaginal delivery: PLAN: s/p PPD # 1 1. routine post delivery care 2. breast feeding- support given 3. rh positive 4. rubella immuned 5. patient would like dc to home today
[2025-01-02 11:57] VITALS: BP 115/73; PULSE 74; PULSE 78; RESP 16; TEMP 36.1; O2SAT 98
== END 2025-01-02 12:55 | disposition home or self-care (01) | DRG 807 ==
LOC: WPOUT 01:19 → WP 01:19
PROVIDERS: Admitting Provider Obstetrics & Gynecology; Visit Provider Obstetrics & Gynecology
DX: O80 Encounter for full-term uncomplicated delivery (principal); Z37.0 Single live birth; Z3A.38 38 weeks gestation of pregnancy; Z86.59 Personal history of other mental and behavioral disorders
CPT/HCPCS: 59025; 59050; 84112; 85025; 86780; 86850; 86900; 86901; 99221; G0378

== ENCOUNTER → 2025-02-14 | Outpatient (CLI) | payer BC, SELFPAY | END | disposition home or self-care (01) | LOC: LABSPEC 16:22 | PROVIDERS: Visit Provider Nurse Practitioner Women's Health | DX: Z12.4 Encounter for screening for malignant neoplasm of cervix (principal) | CPT/HCPCS: 88175; G0145 ==